=== PATIENT | female | born 1970 | race Caucasian/White ===

== ENCOUNTER → 2018-11-14 10:21 | Outpatient (CLI) | payer OTHER, SELFPAY ==
--- NOTE | 2018-11-14 10:24 | BI_ITS ---
MAMMOGRAPHY - BILATERAL SCREENING REASON FOR EXAM: Female, 48 years old. Routine annual screening examination. PERTINENT HISTORY: Mother with breast cancer. TECHNIQUE: Digital bilateral breast shantal (3D mammographic acquisition) in the CC and MLO projections. 2-D mediolateral oblique (MLO) and craniocaudad (CC) views of both breasts were obtained. CAD: Full Field Digital Mammography with Computer Added Detection was performed. COMPARISON: Comparison is made with prior examination dated September 06, 2016. FINDINGS: Breast Composition: The breasts are heterogeneously dense, which may obscure small masses. There are no dominant masses or suspicious calcifications. No other significant abnormalities are identified. There has been no significant change since the prior study. BI/SCREEN MAMM (CAD) W/SHANTAL BILAT IMPRESSION: Stable bilateral screening mammogram. Yearly follow-up mammogram recommended. (A) ASSESSMENT CATEGORY: BIRADS Category 1: Negative. A letter regarding these results will be sent to the patient by the facility within 30 days. Approximately 10% of breast cancers are not detected by mammography. A normal mammogram should not delay biopsy of a clinically suspicious abnormality. [id number] Electronically Signed: Jaime Coronado, at 12:27 EDT , Service support ,
== END ==
PROVIDERS: Family Provider Family Medicine; PCP Family Medicine; Referring Provider Family Medicine; Visit Provider Family Medicine
DX: Z12.31 Encounter for screening mammogram for malignant neoplasm of breast (principal)
CPT/HCPCS: 77063; 77067

== ENCOUNTER → 2018-11-17 09:59 | Outpatient (CLI) | payer OTHER, SELFPAY ==
[2017-03-08 12:45] VITALS: BMI 25.6
[2018-11-17 12:25] LABS: Absolute Lymphocyte Count 1.78 X10^3/uL (0.83-4.51); Basophil# 0.06 X10^3/uL; Eosinophil# 0.44 X10^3/uL; Eosinophils% 7.4 % (0-5); Hematocrit 41.8 % (37-47); Hemoglobin 13.8 g/dL (12.0-15.0); Lymphocyte # 1.78 X10^3/ul (4.0); Lymphocyte % 30.1 % (19-41); Mean Corpuscular Hgb 31.2 pg (27.0-32.0); Mean Corpuscular Volume 94.4 fL (81-99); Mean Platelet Vol. 9.8 fl (6.2-12.0); Monocyte# 0.67 X10^3/uL; Monocyte% 11.3 % (0-10); NRBC Flagged by Analyzer 0 % (0-5); Neutrophil # 2.95 X10^3/uL (2.7-7.7); Platelet Count 293 K/mm3 (150-450); RBC Distribution Width CV 12.9 % (11.6-14.6); RBC Distribution Width SD 44.8 fl (35.1-43.9); Red Blood Count 4.43 M/mm3 (4.2-5.4); White Blood Count 5.9 K/mm3 (4.4-11.0)
[2018-11-17 13:29] LABS: ALB/GLOB Ratio 0.9 RATIO (0.9-2.4); AST(SGOT) 18 U/L (15-37); Alanine Aminotransfer ALT/SGPT 19 U/L (13-56); Albumin, Serum 3.5 g/dL (3.2-5.0); Alkaline Phosphatase 73 U/L (45-117); Anion Gap 4 (5-15); BUN 11 mg/dL (7-18); BUN/Creat Ratio 14.5 RATIO (10-20); Calcium,Total 8.7 mg/dL (8.5-10.1); Chloride 108 mmol/L (98-107); Cholesterol 332 mg/dL (200); Creatinine, Serum 0.76 mg/dL (0.55-1.02); EST Glomerular Filtration Rate 86 mL/min (>60); Est Glom Filt Rate - Afr Amer 104 mL/min (>60); Globulin 3.7 g/dL (2.2-4.2); Glucose 91 mg/dL (74-106); High Density Lipoprotein 57 mg/dL; Potassium 4.2 mmol/L (3.5-5.1); Protein, Total 7.2 g/dL (6.4-8.2); Sodium Level 139 mmol/L (136-145); Triglycerides 280 mg/dL; Very Low Density Lipoprotein 56 mg/dL (5-40)
== END ==
PROVIDERS: Family Provider Family Medicine; PCP Family Medicine; Referring Provider Family Medicine; Visit Provider Family Medicine
DX: E78.5 Hyperlipidemia, unspecified (principal); I10 Essential (primary) hypertension
CPT/HCPCS: 36415; 80053; 80061; 85025

== ENCOUNTER → 2020-03-10 10:43 | Outpatient (CLI) | payer OTHER, SELFPAY ==
[2020-03-10 11:20] LABS: Absolute Lymphocyte Count 2.06 X10^3/uL (0.83-4.51); Absolute Neutrophil Count 4.9 X10^3/uL (2.0-7.7); Basophil# 0.06 X10^3/uL; Basophil% 0.7 % (0-1); Eosinophil# 0.36 X10^3/uL; Eosinophils% 4.4 % (0-5); Hematocrit 43.8 % (37-47); Hemoglobin 14.5 g/dL (12.0-15.0); Lymphocyte # 2.06 X10^3/ul (4.0); Lymphocyte % 25.4 % (19-41); Mean Corp Hgb Conc 33.1 g/dL (32-36); Mean Corpuscular Volume 93.6 fL (81-99); Mean Platelet Vol. 9.3 fl (6.2-12.0); Monocyte# 0.75 X10^3/uL; Monocyte% 9.2 % (0-10); NRBC Flagged by Analyzer 0 % (0-5); Neutrophil # 4.85 X10^3/uL (2.7-7.7); Neutrophil % 59.9 % (47-70); Platelet Count 423 K/mm3 (150-450); RBC Distribution Width CV 13.1 % (11.6-14.6); RBC Distribution Width SD 45.1 fl (35.1-43.9); Red Blood Count 4.68 M/mm3 (4.2-5.4); White Blood Count 8.1 K/mm3 (4.4-11.0)
[2020-03-10 11:55] LABS: AST(SGOT) 12 U/L (15-37); Alanine Aminotransfer ALT/SGPT 19 U/L (13-56); Albumin, Serum 4.1 g/dL (3.2-5.0); Alkaline Phosphatase 72 U/L (45-117); Anion Gap 4 (5-15); BUN 21 mg/dL (7-18); BUN/Creat Ratio 19.6 RATIO (10-20); Calcium,Total 9.5 mg/dL (8.5-10.1); Chloride 103 mmol/L (98-107); Cholesterol 303 mg/dL (200); Creatinine, Serum 1.07 mg/dL (0.55-1.02); EST Glomerular Filtration Rate 58 mL/min (>60); Est Glom Filt Rate - Afr Amer 70 mL/min (>60); Globulin 4.1 g/dL (2.2-4.2); Glucose 97 mg/dL (74-106); High Density Lipoprotein 59 mg/dL; Potassium 3.4 mmol/L (3.5-5.1); Protein, Total 8.2 g/dL (6.4-8.2); Sodium Level 138 mmol/L (136-145); Triglycerides 301 mg/dL; Very Low Density Lipoprotein 60 mg/dL (5-40)
== END ==
PROVIDERS: PCP Family Medicine; Visit Provider Family Medicine
DX: E78.5 Hyperlipidemia, unspecified (principal); I10 Essential (primary) hypertension
CPT/HCPCS: 36415; 80053; 80061; 85025

== ENCOUNTER → 2021-07-15 | Outpatient (CLI) | payer OTHER, SELFPAY ==
[2021-07-15 10:19] LABS: Absolute Lymphocyte Count 2.37 X10^3/uL (0.83-4.51); Absolute Neutrophil Count 4.5 X10^3/uL (2.0-7.7); Basophil# 0.06 X10^3/uL; Basophil% 0.7 % (0-1); Eosinophil# 0.38 X10^3/uL; Eosinophils% 4.7 % (0-5); Hematocrit 42.1 % (37-47); Hemoglobin 14.2 g/dL (12.0-15.0); Lymphocyte # 2.37 X10^3/ul (0.83-4.51); Lymphocyte % 29.2 % (19-41); Mean Corp Hgb Conc 33.7 g/dL (32-36); Mean Corpuscular Hgb 31.3 pg (27.0-32.0); Mean Corpuscular Volume 92.7 fL (81-99); Mean Platelet Vol. 9.6 fl (6.2-12.0); Monocyte# 0.83 X10^3/uL; Monocyte% 10.2 % (0-10); NRBC Flagged by Analyzer 0 % (0-5); Neutrophil # 4.45 X10^3/uL (2.7-7.7); Platelet Count 357 K/mm3 (150-450); RBC Distribution Width CV 13.5 % (11.6-14.6); RBC Distribution Width SD 45.8 fl (35.1-43.9); Red Blood Count 4.54 M/mm3 (4.2-5.4); White Blood Count 8.1 K/mm3 (4.4-11.0)
[2021-07-15 11:01] LABS: ALB/GLOB Ratio 1.1 RATIO (0.9-2.4); AST(SGOT) 22 U/L (15-37); Alanine Aminotransfer ALT/SGPT 23 U/L (13-56); Albumin, Serum 3.9 g/dL (3.2-5.0); Alkaline Phosphatase 61 U/L (45-117); Anion Gap 6 (5-15); BUN 14 mg/dL (7-18); BUN/Creat Ratio 17.1 RATIO (10-20); Calcium,Total 8.8 mg/dL (8.5-10.1); Chloride 103 mmol/L (98-107); Cholesterol 268 mg/dL (200); Creatinine, Serum 0.82 mg/dL (0.55-1.02); EST Glomerular Filtration Rate 78 mL/min (>60); Est Glom Filt Rate - Afr Amer 94 mL/min (>60); Globulin 3.6 g/dL (2.2-4.2); Glucose 96 mg/dL (74-106); High Density Lipoprotein 66 mg/dL; Potassium 3.2 mmol/L (3.5-5.1); Protein, Total 7.5 g/dL (6.4-8.2); Sodium Level 140 mmol/L (136-145); Triglycerides 268 mg/dL; Very Low Density Lipoprotein 54 mg/dL (5-40)
== END | disposition home or self-care (01) ==
LOC: LAB 09:36
PROVIDERS: PCP Family Medicine; Visit Provider Family Medicine
DX: Z00.00 Encounter for general adult medical examination without abnormal findings (principal); I10 Essential (primary) hypertension; E78.5 Hyperlipidemia, unspecified
CPT/HCPCS: 36415; 80053; 80061; 85025

== ENCOUNTER → 2021-08-08 | Outpatient (CLI) | payer OTHER, SELFPAY ==
--- NOTE | 2021-08-08 16:28 | BI_ITS ---
MAMMOGRAPHY - BILATERAL SCREENING REASON FOR EXAM: Female, 51 years old. Routine annual screening examination. PERTINENT HISTORY: Mother with breast cancer. TECHNIQUE: Digital bilateral breast shantal (3D mammographic acquisition) in the CC and MLO projections. 2-D mediolateral oblique (MLO) and craniocaudad (CC) views of both breasts were obtained. CAD: Full Field Digital Mammography with Computer Added Detection was performed. COMPARISON: Comparison is made with prior study dated 11/14/2018. FINDINGS: Breast Composition: The breasts are heterogeneously dense, which may obscure small masses. Asymmetrical breast tissue is seen in the upper slightly lateral aspect of the right breast. The patient will be recalled for additional views of the right breast and possible ultrasound. No other significant abnormalities are identified. BI/SCRN MAMM (CAD)W/SHANTAL BILAT IMPRESSION: Asymmetrical tissue in the upper-outer quadrant of the right breast as described. The patient will be recalled for additional views of the right breast including 90 degree lateral and compression spot views and possible ultrasound. Recall Side: Right Breast ASSESSMENT CATEGORY: BIRADS Category 0: Incomplete. Need additional imaging evaluation. A letter regarding these results will be sent to the patient by the facility within 30 days. Approximately 10% of breast cancers are not detected by mammography. A normal mammogram should not delay biopsy of a clinically suspicious abnormality. [id number] Electronically Signed: Jaime Coronado MD at 8:50 EDT ,
== END | disposition home or self-care (01) ==
LOC: OPBI 08-09 07:00
PROVIDERS: PCP Family Medicine; Visit Provider Family Medicine
DX: Z12.31 Encounter for screening mammogram for malignant neoplasm of breast (principal); Z80.3 Family history of malignant neoplasm of breast
CPT/HCPCS: 77063; 77067

== ENCOUNTER → 2021-08-16 | Outpatient (CLI) | payer OTHER, SELFPAY ==
--- NOTE | 2021-08-16 08:53 | US_ITS ---
STUDY: ULTRASOUND BREAST - RIGHT REASON FOR EXAM: Female, 51 years old. Abnormal screening mammogram. TECHNIQUE: Axial and longitudinal images of the RIGHT breast were performed with a high resolution ultrasound transducer. # OF IMAGES: 28 COMPARISON: Comparison is made with prior mammogram done earlier in the day as well as prior mammogram dated 08/08/2021. FINDINGS: RIGHT Breast: The upper outer quadrant of the right breast was examined by ultrasound. Heterogeneously dense fibroglandular tissue. No solid or cystic masses seen. US/Breast Limited Unilateral IMPRESSION: No sonographic abnormality is seen. ASSESSMENT CATEGORY: BIRADS Category 1: Negative. A letter regarding these results will be sent to the patient by the facility within 30 days. Electronically Signed: Jaime Coronado MD at 11:17 EDT ,
--- NOTE | 2021-08-16 08:53 | BI_ITS ---
MAMMOGRAPHY - UNILATERAL DIAGNOSTIC: RIGHT BREAST REASON FOR EXAM: Female, 51 years old. Abnormal screening mammogram. PERTINENT HISTORY: Mother with breast cancer. TECHNIQUE: Compression spot views of the right breast in the mediolateral oblique and craniocaudad projections were obtained. A 90 degree lateral view was obtained as well. CAD: Full Field Digital Mammography with Computer Added Detection was performed. COMPARISON: Comparison is made with prior study of 08/08/2021. FINDINGS: Breast Composition: The breasts are heterogeneously dense, which may obscure small masses. The area of the asymmetrical density is not as well demonstrated at this time. Correlation with ultrasound is recommended. No other significant abnormalities are identified. BI/DIAG MAMM W/CAD, UNILAT IMPRESSION: Negative unilateral diagnostic mammogram. Correlation with a targeted ultrasound is recommended. ASSESSMENT CATEGORY: BIRADS Category 0: Incomplete. Need additional imaging evaluation. A letter regarding these results will be sent to the patient by the facility within 30 days. Approximately 10% of breast cancers are not detected by mammography. A normal mammogram should not delay biopsy of a clinically suspicious abnormality. Electronically Signed: Jaime Coronado MD at 9:33 EDT ,
== END | disposition home or self-care (01) ==
LOC: OPBI 08:51
PROVIDERS: PCP Family Medicine; Visit Provider Family Medicine
DX: R92.8 Other abnormal and inconclusive findings on diagnostic imaging of breast (principal); Z80.3 Family history of malignant neoplasm of breast
CPT/HCPCS: 76642; 77065

== ENCOUNTER → 2022-11-17 | Outpatient (CLI) | payer OTHER, SELFPAY ==
[2022-11-17 10:01] LABS: Absolute Lymphocyte Count 2.02 X10^3/uL (0.83-4.51); Absolute Neutrophil Count 3.6 X10^3/uL (2.0-7.7); Basophil# 0.05 X10^3/uL; Basophil% 0.7 % (0-1); Eosinophil# 0.31 X10^3/uL; Eosinophils% 4.6 % (0-5); Hematocrit 42.9 % (37-47); Hemoglobin 14.4 g/dL (12.0-15.0); Lymphocyte # 2.02 X10^3/ul (0.83-4.51); Mean Corp Hgb Conc 33.6 g/dL (32-36); Mean Corpuscular Hgb 30.8 pg (27.0-32.0); Mean Corpuscular Volume 91.7 fL (81-99); Mean Platelet Vol. 9.5 fl (6.2-12.0); Monocyte% 10.4 % (0-10); NRBC Flagged by Analyzer 0 % (0-5); Neutrophil # 3.64 X10^3/uL (2.7-7.7); Neutrophil % 54.2 % (47-70); Platelet Count 352 K/mm3 (150-450); RBC Distribution Width SD 43.6 fl (35.1-43.9); Red Blood Count 4.68 M/mm3 (4.2-5.4); White Blood Count 6.7 K/mm3 (4.4-11.0)
[2022-11-17 10:19] LABS: ALB/GLOB Ratio 1.1 RATIO (0.9-2.4); AST(SGOT) 22 U/L (15-37); Alanine Aminotransfer ALT/SGPT 25 U/L (13-56); Albumin, Serum 3.9 g/dL (3.2-5.0); Alkaline Phosphatase 76 U/L (45-117); Anion Gap 1 (5-15); BUN 25 mg/dL (7-18); Calcium,Total 9.5 mg/dL (8.5-10.1); Chloride 103 mmol/L (98-107); Cholesterol 350 mg/dL (200); EST Glomerular Filtration Rate 62 mL/min (>60); Est Glom Filt Rate - Afr Amer 75 mL/min (>60); Globulin 3.7 g/dL (2.2-4.2); Glucose 100 mg/dL (74-106); High Density Lipoprotein 71 mg/dL; Potassium 3.8 mmol/L (3.5-5.1); Protein, Total 7.6 g/dL (6.4-8.2); Sodium Level 137 mmol/L (136-145); Triglycerides 198 mg/dL; Very Low Density Lipoprotein 40 mg/dL (5-40)
== END | disposition home or self-care (01) ==
LOC: LAB 09:35
PROVIDERS: PCP Family Medicine; Referring Provider Family Medicine; Visit Provider Family Medicine
DX: Z00.00 Encounter for general adult medical examination without abnormal findings (principal); I10 Essential (primary) hypertension; E78.5 Hyperlipidemia, unspecified
CPT/HCPCS: 36415; 80053; 80061; 85025

== ENCOUNTER → 2023-10-01 | Outpatient (CLI) | payer OTHER, SELFPAY ==
--- NOTE | 2023-10-01 16:14 | BI_ITS ---
MAMMOGRAPHY - BILATERAL SCREENING REASON FOR EXAM: Female, 53 years old. Routine annual screening examination. PERTINENT HISTORY: Mother with breast cancer. TECHNIQUE: Digital bilateral breast shantal (3D mammographic acquisition) in the CC and MLO projections. 2-D mediolateral oblique (MLO) and craniocaudad (CC) views of both breasts were obtained. CAD: Full Field Digital Mammography with Computer Added Detection was performed. COMPARISON: Comparison is made with prior study dated August 08, 2021 and August 16, 2021. FINDINGS: Breast Composition: The breasts are heterogeneously dense, which may obscure small masses. There are no dominant masses or suspicious calcifications. Stable asymmetry of breast tissue were more breast tissue is seen in the upper slightly outer aspect of the right breast as compared to the left side. No other significant abnormalities are identified. There has been no significant change since the prior study. BI/SCRN MAMM (CAD)W/SHANTAL BILAT IMPRESSION: Stable bilateral screening mammogram. Yearly follow-up mammogram recommended. (A) ASSESSMENT CATEGORY: BIRADS Category 2: Benign. A letter regarding these results will be sent to the patient by the facility within 30 days. Approximately 10% of breast cancers are not detected by mammography. A normal mammogram should not delay biopsy of a clinically suspicious abnormality. [id number] Electronically Signed: Jaime Coronado MD at 8:15 EDT ,
== END | disposition home or self-care (01) ==
LOC: OPBI 16:12
PROVIDERS: PCP Family Medicine; Referring Provider Family Medicine; Visit Provider Family Medicine
DX: Z12.31 Encounter for screening mammogram for malignant neoplasm of breast (principal); Z80.3 Family history of malignant neoplasm of breast
CPT/HCPCS: 77063; 77067

== ENCOUNTER → 2024-07-11 | Outpatient (CLI) | payer OTHER, SELFPAY ==
[2024-07-11 11:26] LABS: Absolute Lymphocyte Count 2.24 X10^3/uL (0.83-4.51); Absolute Neutrophil Count 3.4 X10^3/uL (2.0-7.7); Basophil# 0.06 X10^3/uL; Basophil% 0.9 % (0-1); Eosinophil# 0.18 X10^3/uL; Eosinophils% 2.7 % (0-5); Hematocrit 40.6 % (37-47); Lymphocyte # 2.24 X10^3/ul (0.83-4.51); Lymphocyte % 33.8 % (19-41); Mean Corp Hgb Conc 34.5 g/dL (32-36); Mean Corpuscular Hgb 30.8 pg (27.0-32.0); Mean Corpuscular Volume 89.2 fL (81-99); Mean Platelet Vol. 9.7 fl (6.2-12.0); Monocyte# 0.71 X10^3/uL; Monocyte% 10.7 % (0-10); NRBC Flagged by Analyzer 0 % (0-5); Neutrophil # 3.42 X10^3/uL (2.7-7.7); Neutrophil % 51.7 % (47-70); Platelet Count 339 K/mm3 (150-450); RBC Distribution Width SD 42.4 fl (35.1-43.9); Red Blood Count 4.55 M/mm3 (4.2-5.4); White Blood Count 6.6 K/mm3 (4.4-11.0)
[2024-07-11 12:21] LABS: ALB/GLOB Ratio 1.5 RATIO (0.9-2.4); AST(SGOT) 29 U/L (<=31); Alanine Aminotransfer ALT/SGPT 22 U/L (<=34); Albumin, Serum 4.5 g/dL (3.5-5.0); Alkaline Phosphatase 84 U/L (35-104); Anion Gap 12 (5-15); BUN 19 mg/dL (4-19); BUN/Creat Ratio 19.8 RATIO (10-20); Calcium,Total 9.9 mg/dL (7.6-11.0); Carbon Dioxide 26.8 mmol/L (21.0-32.0); Chloride 102 mmol/L (98-108); Creatinine, Serum 0.98 mg/dL (0.70-1.20); EST Glomerular Filtration Rate 69 (>60); Glucose 101 mg/dL (70-99); Potassium 3.8 mmol/L (3.3-5.1); Protein, Total 7.5 g/dL (5.9-8.4); Sodium Level 141 mmol/L (133-145); Total Bilirubin 0.43 mg/dL (0.00-1.30)
[2024-07-11 12:40] LABS: Cholesterol 274 mg/dL (<=200); High Density Lipoprotein 65 mg/dL; Low Density Lipoprotein Calc. 176 mg/dL; Triglycerides 168 mg/dL; Very Low Density Lipoprotein 34 mg/dL (5-40); cholesterol:hdl ratio screen 4.24
== END | disposition home or self-care (01) ==
LOC: LAB 10:45
PROVIDERS: PCP Family Medicine; Referring Provider Family Medicine; Visit Provider Family Medicine
DX: Z00.00 Encounter for general adult medical examination without abnormal findings (principal); I10 Essential (primary) hypertension; E78.5 Hyperlipidemia, unspecified
CPT/HCPCS: 36415; 80053; 80061; 85025

== ENCOUNTER → 2024-10-21 | Outpatient (CLI) | payer OTHER, SELFPAY ==
--- NOTE | 2024-10-21 15:31 | BI_ITS ---
EXAM: SCRN MAMM (CAD)W/SHANTAL BILAT DATE: 10/21/2024 CLINICAL HISTORY: F, Age 54 y/o , SCREENING TECHNIQUE: SCRN MAMM (CAD)W/SHANTAL BILAT COMPARISON: Prior exam(s) were compared FINDINGS: TISSUE DENSITY: The breasts are heterogeneously dense, which may obscure small masses. Bilateral Breast Mammographic Findings: No suspicious masses, calcifications or other abnormalities are identified. BI/SCRN MAMM (CAD)W/SHANTAL BILAT IMPRESSION: No mammographic evidence of malignancy in either breast. OVERALL FINAL ASSESSMENT BI-RADS 1: NEGATIVE. RECOMMENDATION: Routine annual follow-up in 1 Year A letter with findings and recommendations will be mailed to the patient. Reading Location: [id number]
== END | disposition home or self-care (01) ==
LOC: OPBI 15:30
PROVIDERS: PCP Family Medicine; Referring Provider Family Medicine; Visit Provider Family Medicine
DX: Z12.31 Encounter for screening mammogram for malignant neoplasm of breast (principal)
CPT/HCPCS: 77063; 77067

== ENCOUNTER → 2024-12-28 | Outpatient (CLI) | payer OTHER, SELFPAY ==
--- OUTSIDE RECORDS SUMMARY | 2024-12-28 17:51 | XMS RPT_ITS | CCD ---
Author Organization [facility] Care Team Providers Care Treatment Coordinator Name Role Phone Samina ALONSO, Dr. Mclean Primary Care Provider [phone] Samina ALONSO, Dr. Mclean Attending Provider [phone] Dr. Caridad Haas MD Referring Provider [phone] Caridad Haas Primary Care Unavailable Caridad Haas Referring Unavailable Caridad Haas Attending Unavailable Caridad Haas Referring Unavailable Caridad Haas Attending Unavailable Caridad Haas Primary Care Unavailable Medications Current Medications Medication Drug Class(es) Dates Sig (Normalized) Sig (Original) hydroCHLOROthiazide 25 mg / triamterene 37.5 mg oral tablet (1 source) Potassium-spari ng Diuretic, Thiazide Diuretic Start: 10-22-2024 Triamterene-Hydr ochlorothiazid 37.5-25 mg tablet Active 1 {tbl} PO daily October 22, 2024 12:00am simvastatin 20 mg oral tablet (7 sources) HMG-CoA Reductase Inhibitor Start: 10-22-2024 take 1 tablet by mouth once daily Simvastatin 20 mg tablet Active 20 mg PO daily October 22, 2024 12:00am Start: 03-08-2017 End: 10-22-2024 take 1 tablet by mouth once daily in the evening Simvastatin 5 mg tablet Discontinued 5 mg PO EVERY EVENING March 08, 2017 1:00am October 22, 2024 11:35am wheat dextrin 3000 mg powder for oral solution (1 source) Start: 10-22-2024 take 4 [oz_av] by mouth once daily Wheat Dextrin (Best Fiber) 3 gram/3.5 gram powder Active 1 NMA PO daily October 22, 2024 12:00am mix into at least 4 oz water or juice before administering Completed/Discontinued Medications Medication Drug Class(es) Dates Sig (Normalized) Sig (Original) triamterene 50 mg oral capsule (6 sources) Potassium-sparin g Diuretic Start: 03-08-2017 End: 10-22-2024 take 1 capsule by mouth once daily Triamterene 50 mg capsule Discontinued 50 mg PO daily March 08, 2017 1:00am October 22, 2024 11:34am Problems Problem Classification Problem Date Documented Da te Episodic/Chronic Other screening for suspected conditions (not mental disorders or infectious disease) (1 source) Encounter for screening mammogram for malignant neoplasm of breast; Translations: [Encounter for screening mammogram for malignant neoplasm of breast] Onset: 10-29-2024 Episodic Spondylosis; intervertebral disc disorders; other back problems (6 sources) Cervical radiculopathy; Translations: [Radiculopathy, cervical region] 03-08-2017 Episodic Results Test Name Value Interpretation Reference Range Facility Breast imaging reportOrdered By: Gemini Lerner on 10-21-2024 Study report [facility] [address], [place] [id number] SCRN MAMM (CAD)W/SHANTAL BILAT MR#: [id number] Acct: [id number] Name: LEIA LEW Rep #: [id number] : 1970 F 54 From: Clifton Steel MD PCP: Dr. Caridad Haas MD Status: [facility] Study:SCRN MAMM (CAD)W/SHANTAL BILAT Date of Exa m: 10/21/24 Exam# [id number] Ordering Dr: Jerri Haas MD EXAM: SCRN MAMM (CAD)W/SHANTAL BILAT DATE: 10/21/2024 CLINICAL HISTORY: F, Age 54 y/o , SCREENING TECHNIQUE: SCRN MAMM (CAD)W/SHANTAL BILAT COMPARISON: Prior exam(s) were compared FINDINGS: TISSUE DENSITY: The breasts are heterogeneously dense, which may obscure small masses. Bilateral Breast Mammographic Findings: No suspicious masses, calcifications or other abnormalities are identified. BI/SCRN MAMM (CAD)W/SHANTAL BILAT IMPRESSION: No mammographic evidence of malignancy in either breast. OVERALL FINAL ASSESSMENT BI-RADS 1: NEGATIVE. RECOMMENDATION: Routine annual follow-up in 1 Year A letter with findings and recommendations will be mailed to the patient. Reading Location: [facility] CC: Dr. Caridad Haas MD ~ Chemical Checker: Signed [facility] SCRN MAMM (CAD)W/SHANTAL BILATo n 10-21-2024 SCRN MAMM (CAD)W/SHANTAL BILAT [facility] Services [address] [place] [address] SCRN MAMM (CAD)W/SHANTAL BILAT MR#: [id number] Acct: [id number] Name: LEIA LEW Rep #: [id number] : 1970 F 54 From: Gemini Zavala i, MD PCP: Dr. Caridad Haas MD Status: [facility] Study: SCRN MAMM (CAD)W/SHANTAL BILAT Date of Exam: 10/09 06/02 Exam# [id number] Ordering Dr: Caridad Haas MD EXAM: SCRN MAMM (CAD)W/SHANTAL BILAT DATE: 10/21/2024 CLINICAL HISTORY: F, Age 54 y/o , SCREENING TECHNIQUE: SCRN MAMM (CAD)W/SHANTAL BILAT COMPARISON: Prior exam(s) were compared FINDINGS: TISSUE DENSITY: The breasts are heterogeneously dense, which may obscure small masses. Bilateral Breast Mammographic Findings: No suspicious masses, calcifications or other abnormalities are identified. BI/SCRN MAMM (CAD)W/SHANTAL BILAT IMPRESSION: No mammographic evidence of malignancy in either breast. OVERALL FINAL ASSESSMENT BI-RADS 1: NEGATIVE. RECOMMENDATION: Routine annual follow-up in 1 Year A letter with findings and recommendations will be mailed to the patient. Reading Location: [facility] CC: Dr. Caridad Haas MD Chemical Checker: Signed Normal [facility] Absolute lymphocyte countOrd ered By: Caridad Haas on 07-11-2024 Lymphocytes Auto (Unsp spec) [#/Vol] 2.24 10*3/uL 0.83-4.51 [facility] Absolute neutrophil countOrd ered By: Caridad Haas on 07-11-2024 Neutrophils (Bld) [#/Vol] 3.4 10*3/uL 2.0-7.7 [facility] Anion gap in Serum or Plasma Ordered By: Caridad Haas on 07-11-2024 Anion gap [Moles/Vol] 12 mmol/L 5- [facility] Automated lymphocyte count a s percentage of total leukocytesOrdered By: Caridad Haas on 07-11-2024 Lymphocytes/100 WBC Auto (Unsp spec) 33.8 % - [facility] BUN/creatinine ratioOrdered By: Caridad Haas on 07-11-2024 Urea nitrogen/Creatinine [Mass ratio] 19.8 mg/mg 10- [facility] Basophil percentageOrdered B y: Caridad Haas on 07-11-2024 Basophils/100 WBC (Bld) 0.9 % 0-1 [facility] Bilirubin, totalOrdered By: Caridad Haas on 07-11-2024 Bilirubin [Mass/Vol] 0.43 mg/dL 0.00-1.30 [facility] CBC W/Diff, Automatedon Absolute Lymph 2.24 X10 3/uL Normal 0.83-4.51 [facility] Comment on above: Performed By: #### L 500.4050, L500.4100, L100.0100 #### [facility] [address] [place], [address] Absolute Neut 3.4 X10 3/uL Normal 2.0-7.7 [facility] Comment on above: Performed By: #### L 500.4050, L500.4100, L100.0100 #### [facility] [address] [place], [address] Basophils/100 WBC (Bld) 0.9 % Normal 0-1 [facility] Comment on above: Performed By: #### L 500.4050, L500.4100, L100.0100 #### [facility] [address] [place], [address] Eosinophils/100 WBC (Bld) 2.7 % Normal 0-5 [facility] Comment on above: Performed By: #### L 500.4050, L500.4100, L100.0100 #### [facility] [address] [place], [address] Erythrocyte distribution width (RBC) [Ratio] 13.0 % Normal 11.6-14.6 [facility] Comment on above: Performed By: #### L 500.4050, L500.4100, L100.0100 #### [facility] [address] [place], [address] Hematocrit (Bld) [Volume fraction] 40.6 % Normal 37-47 [facility] Comment on above: Performed By: #### L 500.4050, L500.4100, L100.0100 #### [facility] [address] [place], [address] Hemoglobin (Bld) [Mass/Vol] 14.0 g/dL Normal 12.0-15.0 [facility] Comment on above: Performed By: #### L 500.4050, L500.4100, L100.0100 #### [facility] [address] [place], [address] IG% 0.200 Normal 0.0-0.9 [facility] Comment on above: Result Comment: IG% - Immature Granulocytes (promyelocytes, myelocytes and metamyelocytes) > 1% indicates that a LEFT SHIFT is Present. Performed By: #### L 500.4050, L500.4100, L100.0100 #### [facility] [address] [place], [address] Lymphocytes/100 WBC (Bld) 33.8 % Normal 19-41 [facility] Comment on above: Performed By: #### L 500.4050, L500.4100, L100.0100 #### [facility] [address] [place], [address] MCH (RBC) [Entitic mass] 30.8 pg Normal 27.0-32.0 [facility] Comment on above: Performed By: #### L 500.4050, L500.4100, L100.0100 #### [facility] [address] [place], [address] MCHC (RBC) [Mass/Vol] 34.5 g/dL Normal 32-36 [facility] Comment on above: Performed By: #### L 500.4050, L500.4100, L100.0100 #### [facility] [address] [place], [address] MCV (RBC) [Entitic vol] 89.2 fL Normal 81-99 [facility] Comment on above: Performed By: #### L 500.4050, L500.4100, L100.0100 #### [facility] [address] [place], [address] Monocytes/100 WBC (Bld) 10.7 % High 0-10 [facility] Comment on above: Performed By: #### L 500.4050, L500.4100, L100.0100 #### [facility] [address] [place], [address] Neutrophils/100 WBC (Bld) 51.7 % Normal 47-70 [facility] Comment on above: Performed By: #### L 500.4050, L500.4100, L100.0100 #### [facility] [address] [place], [address] Nucleated RBC (Bld) [#/Vol] 0 10*3/uL Normal 0-5 [facility] Comment on above: Performed By: #### L 500.4050, L500.4100, L100.0100 #### [facility] [address] [place], [address] Platelet mean volume (Bld) [Entitic vol] 9.7 fL Normal 6.2-12.0 [facility] Comment on above: Performed By: #### L 500.4050, L500.4100, L100.0100 #### [facility] [address] [place], [address] Platelets (Bld) [#/Vol] 339 10*3/uL Normal 150-450 [facility] Comment on above: Performed By: #### L 500.4050, L500.4100, L100.0100 #### [facility] [address] [place], [address] RBC (Bld) [#/Vol] 4.55 10*6/uL Normal 4.2-5.4 [facility] Comment on above: Performed By: #### L 500.4050, L500.4100, L100.0100 #### [facility] [address] [place], [address] RDW SD 42.4 fl Normal 35.1-43.9 [facility] Comment on above: Performed By: #### L 500.4050, L500.4100, L100.0100 #### [facility] [address] [place], [address] WBC (Bld) [#/Vol] 6.6 10*3/uL Normal 4.4-11.0 [facility] Comment on above: Performed By: #### L 500.4050, L500.4100, L100.0100 #### [facility] [address] [place], [address] Calculated very low density lipoprotein (VLDL) cholesterol measurementOrdered By: Caridad Haas on 07-11-2024 Calculated very low density lipoprotein (VLDL) cholesterol measurement 34 mg/dL 5-40 [facility] Carbon dioxide, total [Moles /volume] in Central venous bloodOrdered By: Caridad Hasa on 07-11-2024 CO2 [Moles/Vol] 26.8 mmol/L 21.0-32.0 [facility] Chloride assayOrdered By: Rashad Haas on 07-11-2024 Chloride [Moles/Vol] 102 mmol/L 98-108 [facility] Comprehensive Metabolic Prof ilon 07-11-2024 Albumin [Mass/Vol] 4.5 g/dL Normal 3.5-5.0 [facility] Comment on above: Performed By: #### L 500.4050, L500.4100, L100.0100 #### [facility] [address] [place], [address] Albumin/Globulin [Mass ratio] 1.5 {ratio} Normal 0.9-2.4 [facility] Comment on above: Performed By: #### L 500.4050, L500.4100, L100.0100 #### [facility] [address] [place], [address] ALK PHOS 84 U/L Normal 35-104 [facility] Comment on above: Performed By: #### L 500.4050, L500.4100, L100.0100 #### [facility] [address] [place], [address] ALT [Catalytic activity/Vol] 22 U/L Normal <=34 [facility] Comment on above: Performed By: #### L 500.4050, L500.4100, L100.0100 #### [facility] [address] [place], [address] AST [Catalytic activity/Vol] 29 U/L Normal <=31 [facility] Comment on above: Performed By: #### L 500.4050, L500.4100, L100.0100 #### [facility] [address] [place], [address] Bilirubin [Mass/Vol] 0.43 mg/dL Normal 0.00-1.30 [facility] Comment on above: Performed By: #### L 500.4050, L500.4100, L100.0100 #### [facility] [address] [place], [address] BUN/CRE 19.8 RATIO Normal 10-20 [facility] Comment on above: Performed By: #### L 500.4050, L500.4100, L100.0100 #### [facility] [address] [place], [address] Calcium [Mass/Vol] 9.9 mg/dL Normal 7.6-11.0 [facility] Comment on above: Performed By: #### L 500.4050, L500.4100, L100.0100 #### [facility] [address] [place], [address] Chloride [Moles/Vol] 102 mmol/L Normal 98-108 [facility] Comment on above: Performed By: #### L 500.4050, L500.4100, L100.0100 #### [facility] [address] [place], [address] CO2 [Moles/Vol] 26.8 mmol/L Normal 21.0-32.0 [facility] Comment on above: Performed By: #### L 500.4050, L500.4100, L100.0100 #### [facility] [address] [place], [address] Creatinine [Mass/Vol] 0.98 mg/dL Normal 0.70-1.20 [facility] Comment on above: Performed By: #### L 500.4050, L500.4100, L100.0100 #### [facility] [place] [facility] [address] [place], [address] GAP 12 Normal 5-15 [facility] Comment on above: Performed By: #### L 500.4050, L500.4100, L100.0100 #### [facility] [address] [place], [address] GFR/1.73 sq M.predicted among non-blacks MDRD (S/P/Bld) [Vol rate/Area] 69 mL/min/{1.73_m2} Normal >60 [facility] Comment on above: Result Comment: mL/m in/1.73m2 CKD-EPI Creatinine Equation (2020) Performed By: #### L 500.4050, L500.4100, L100.0100 #### [facility] [address] [place], [address] Globulin (S) [Mass/Vol] 3.0 g/dL Normal 2.2-4.2 [facility] Comment on above: Performed By: #### L 500.4050, L500.4100, L100.0100 #### [facility] [address] [place], [address] Glucose [Mass/Vol] 101 mg/dL High 70-99 [facility] Comment on above: Performed By: #### L 500.4050, L500.4100, L100.0100 #### [facility] [address] [place], [address] Potassium [Moles/Vol] 3.8 mmol/L Normal 3.3-5.1 [facility] Comment on above: Performed By: #### L 500.4050, L500.4100, L100.0100 #### [facility] [address] [place], [address] Sodium [Moles/Vol] 141 mmol/L Normal 133-145 [facility] Comment on above: Performed By: #### L 500.4050, L500.4100, L100.0100 #### [facility] [address] [place], [address] T PROT 7.5 g/dL Normal 5.9-8.4 [facility] Comment on above: Performed By: #### L 500.4050, L500.4100, L100.0100 #### [facility] [address] [place], [address] Urea nitrogen [Mass/Vol] 19 mg/dL Normal 4-19 [facility] Comment on above: Performed By: #### L 500.4050, L500.4100, L100.0100 #### [facility] [address] [place], [address] Eosinophil percentageOrdered By: Caridad Haas on 07-11-2024 Eosinophils/100 WBC (Bld) 2.7 % 0-5 [facility] Erythrocyte distribution wid th ratioOrdered By: Caridad Samina on 07-11-2024 Erythrocyte distribution width (RBC) [Ratio] 13.0 % 11.6-14.6 [facility] Erythrocyte distribution wid th standard deviationOrdered By: Caridadjerri Haas on 07-11-2024 Erythrocyte distribution width (RBC) [Ratio] 42.4 fl 35.1-43.9 [facility] Glomerular filtration rate ( GFR) estimation/1.73 sq m using serum, plasma, or whole bOrdered By: Caridad Haas on 07-11-2024 GFR/1.73 sq M.predicted among non-blacks MDRD (S/P/Bld) [Vol rate/Area] 69 mL/min/{1.73_m2} >60 [facility] Comment on above: mL/min/1.73m2 CKD-EP I Creatinine Equation (2020) Hematocrit Auto (Bld) [Volum e fraction]Ordered By: Caridad Haas on 07-11-2024 Hematocrit (Bld) [Volume fraction] 40.6 % 37-47 [facility] Hemoglobin measurementOrdere d By: Caridad Haas on 07-11-2024 Hemoglobin (Bld) [Mass/Vol] 14.0 g/dL 12.0-15.0 [facility] Immature granulocytes/100 WB C Auto (Bld)Ordered By: Caridad Haas on 07-11-2024 Immature granulocytes/100 WBC (Bld) 0.200 % 0.0-0.9 [facility] Comment on above: IG% - Immature Granu locytes (promyelocytes, myelocytes and metamyelocytes) > 1% indicates that a LEFT SHIFT is Present. LDL calc ser/plasOrdered By: Caridad Haas on 07-11-2024 Cholesterol in LDL [Mass/Vol] 176 mg/dL [facility] Comment on above: Blrcjjbdnz=180-028 m g/dL & Higher Bdbs=360 mg/dL or greater Laboratory - Chemistry and C hemistry - challengeOrdered By: Caridad Haas on 07-11-2024 AST [Catalytic activity/Vol] 29 U/L <32 [facility] Lipid Profileon 07-11-2024 CHOL:HDL 4.24 Normal [facility] Comment on above: Performed By: #### L 500.4050, L500.4100, L100.0100 #### [facility] [address] [place], [address] Cholesterol [Mass/Vol] 274 mg/dL High <=200 [facility] Comment on above: Result Comment: Chol esterol level, Desirable <200 mg/dL Borderline high cholesterol 200-239 mg/dL High cholesterol >=240 mg/dL Recommendations of the NCEP Adult Treatment Panel for the following risk-cutoff thresholds for the [place] population. Performed By: #### L 500.4050, L500.4100, L100.0100 #### [facility] [address] [place], [address] Cholesterol in HDL [Mass/Vol] 65 mg/dL Normal [facility] Comment on above: Result Comment: Sally onal Cholesterol Education Program (NCEP) guidelines: <40 mg/dL: Low HDL-cholesterol (major risk factor for CHD) >= 60 mg/dL: High HDL-cholesterol (negative risk factor for CHD) HDL-cholesterol is affected by a number of factors, e.g. smoking, exercise, hormones, sex and age. Performed By: #### L 500.4050, L500.4100, L100.0100 #### [facility] [address] [place], [address] Cholesterol in LDL [Mass/Vol] 176 mg/dL Normal [facility] Comment on above: Result Comment: Bord hxqqll=512-797 mg/dL Higher Hnqu=919 mg/dL or greater Performed By: #### L 500.4050, L500.4100, L100.0100 #### [facility] [address] [place], [address] Cholesterol in VLDL [Mass/Vol] 34 mg/dL Normal 5-40 [facility] Comment on above: Performed By: #### L 500.4050, L500.4100, L100.0100 #### [facility] [address] [place], [address] Triglyceride [Mass/Vol] 168 mg/dL Normal [facility] Comment on above: Result Comment: The drugs N-Acetylcysteine and Metamizole may falsely depress this assay. Normal range: <150 mg/dL Borderline High: 150-199 mg/dL High: 200-499 mg/dL Very High: >500 mg/dL Performed By: #### L 500.4050, L500.4100, L100.0100 #### [facility] [address] [place], [address] MCV (mean corpuscular volume ) determinationOrdered By: Caridad Haas on 07-11-2024 MCV (RBC) [Entitic vol] 89.2 fL 81-99 [facility] Mean corpuscular hemoglobin (MCH) determinationOrdered By: Caridad Haas on 07-11-2024 MCH (RBC) [Entitic mass] 30.8 pg 27.0-32.0 [facility] Mean corpuscular hemoglobin concentration (MCHC) determinationOrdered By: Caridad Haas on 07-11-2024 MCHC (RBC) [Mass/Vol] 34.5 g/dL 32-36 [facility] Mean platelet volume determi nationOrdered By: Caridad Haas on 07-11-2024 Platelet mean volume (Bld) [Entitic vol] 9.7 fL 6.2-12.0 [facility] Monocyte percentageOrdered B y: Caridad Haas on 07-11-2024 Monocytes/100 WBC (Bld) 10.7 % High 0-10 [facility] Neutrophil percentageOrdered By: Caridad Haas on 07-11-2024 Neutrophils/100 WBC (Bld) 51.7 % 47-70 [facility] Nucleated red blood cell per centageOrdered By: Caridad Haas on 07-11-2024 Nucleated RBC/100 WBC (Bld) [Ratio] 0 % 0-5 [facility] Platelet countOrdered By: Rashad Haas on 07-11-2024 Platelets (Bld) [#/Vol] 339 10*3/uL 150-450 [facility] Potassium measurement (mass/ volume)Ordered By: Caridad Haas on 07-11-2024 Potassium (Unsp spec) [Mass/Vol] 3.8 mmol/L 3.3-5.1 [facility] RBC Auto (Bld) [#/Vol]Ordere d By: Caridad Haas on 07-11-2024 RBC (Bld) [#/Vol] 4.55 10*6/uL 4.2-5.4 [facility] Screening total cholesterol/ high density lipoprotein (HDL) cholesterol ratioOrdered By: Caridad Haas on 07-11-2024 Cholesterol.total/Cholest gene in HDL [Mass ratio] 4.24 {ratio} [facility] Serum creatinine measurement (mass/volume)Ordered By: Caridad Haas on 07-11-2024 Creatinine [Mass/Vol] 0.98 mg/dL 0.70-1.20 [facility] Serum globulin measurementOr dered By: Caridad Haas on 07-11-2024 Globulin (S) [Mass/Vol] 3.0 g/dL 2.2-4.2 [facility] Serum glucose measurement (m ass/volume)Ordered By: Caridad Haas on 07-11-2024 Glucose [Mass/Vol] 101 mg/dL High 70-99 [facility] Serum or plasma alanine shipman otransferase (ALT) measurementOrdered By: Caridad Haas on 07-11-2024 ALT [Catalytic activity/Vol] 22 U/L <35 [facility] Serum or plasma albumin lore urement (mass/volume)Ordered By: Caridad Haas on 07-11-2024 Albumin [Mass/Vol] 4.5 g/dL 3.5-5.0 [facility] Serum or plasma albumin/glob ulin mass ratioOrdered By: Caridad Haas on 07-11-2024 Albumin/Globulin [Mass ratio] 1.5 {ratio} 0.9-2.4 [facility] Serum or plasma alkaline baldo sphatase measurementOrdered By: Caridad Haas on 07-11-2024 ALP [Catalytic activity/Vol] 84 U/L 35-104 [facility] Serum or plasma calcium lore urement (mass/volume)Ordered By: Caridad Haas on 07-11-2024 Calcium [Mass/Vol] 9.9 mg/dL 7.6-11.0 [facility] Serum or plasma cholesterol in HDL measurement (mass/volume)Ordered By: Caridad Haas on 07-11-2024 Cholesterol in HDL [Mass/Vol] 65 mg/dL >40 [facility] Comment on above: National Cholesterol Education Program (NCEP) guidelines:<40 mg/dL: Low HDL-cholesterol (major risk factor for CHD)>= 60 mg/dL: High HDL-cholesterol (negative risk factor for CHD)HDL-cholesterol is affected by a number of factors, e.g. smoking, exercise, hormones, sex and age. Serum or plasma cholesterol measurement (mass/volume)Ordered By: Caridad Haas on 07-11-2024 Cholesterol [Mass/Vol] 274 mg/dL High <201 [facility] Comment on above: Cholesterol level, D esirable <200 mg/dLBorderline high cholesterol 200-239 mg/dLHigh cholesterol >=240 mg/dLRecommendations of the NCEP Adult Treatment Panel for the following risk-cutoff thresholds for the [place] population. Serum or plasma urea nitroge n measurement (mass/volume)Ordered By: Caridad Haas on 07-11-2024 Urea nitrogen [Mass/Vol] 19 mg/dL 4-19 [facility] Sodium levelOrdered By: Lisa Haas on 07-11-2024 Sodium [Moles/Vol] 141 mmol/L 133-145 [facility] Total proteinOrdered By: Lukasz Haas on 07-11-2024 Protein [Mass/Vol] 7.5 g/dL 5.9-8.4 [facility] Triglycerides measurementOrd ered By: Caridad Haas on 07-11-2024 Triglyceride [Mass/Vol] 168 mg/dL <199 [facility] Comment on above: The drugs N-Acetylcy steine and Metamizole may falsely depress this assay. Normal range: <150 mg/dLBorderline High: 150-199 mg/dLHigh: 200-499 mg/dLVery High: >500 mg/dL White blood cell (WBC) count Ordered By: Caridad Haas on 07-11-2024 WBC (Bld) [#/Vol] 6.6 10*3/uL 4.4-11.0 [facility] Absolute lymphocyte countOrd ered By: Caridad Haas on 11-17-2022 Lymphocytes Auto (Unsp spec) [#/Vol] 2.02 10*3/uL 0.83-4.51 [facility] Basophil percentageOrdered B y: Caridad Haas on 11-17-2022 Basophils/100 WBC (Bld) 0.7 % 0-1 [facility] Bilirubin [Mass/Vol] 0.50 mg/dL 0.20-1.00 [facility] Comment on above: For patients on eltr ombopag therapy, use of Dimension [place] TBIL is not recommended. Chloride [Moles/Vol] 103 mmol/L 98-107 [facility] Cholesterol [Mass/Vol] 350 mg/dL <200 [facility] Comment on above: <200 mg/dL Desirable 200-240 mg/dL Borderline >240 mg/dL High Risk Eosinophils/100 WBC (Bld) 4.6 % 0-5 [facility] Glucose [Mass/Vol] 100 mg/dL 74-106 [facility] Comment on above: Fasting Glucose resu lt from 100 to 125 mg/dL suggests IMPAIRED HOMEOSTASIS per A.D.A. criteria. Neutrophils (Bld) [#/Vol] 3.6 10*3/uL 2.0-7.7 [facility] Neutrophils/100 WBC (Bld) 54.2 % 47-70 [facility] Potassium [Moles/Vol] 3.8 mmol/L 3.5-5.1 [facility] Protein [Mass/Vol] 7.6 g/dL 6.4-8.2 [facility] Sodium [Moles/Vol] 137 mmol/L 136-145 [facility] Triglyceride [Mass/Vol] 198 mg/dL <199 [facility] Comment on above: The drugs N-Acetylcy steine and Metamizole may falsely depress this assay.Serum Triglycerides Reference Interval Normal <150 mg/dL Borderline high 150 - 199 mg/dL High 200 - 499 mg/dL Very High > or = 500 mg/dL WBC (Bld) [#/Vol] 6.7 10*3/uL 4.4-11.0 [facility] Blood erythrocytes count (nu mber/volume)Ordered By: Caridad Haas on 11-17-2022 RBC (Bld) [#/Vol] 4.68 10*6/uL 4.2-5.4 [facility] Blood hemoglobin measurement (mass/volume)Ordered By: Caridad Haas on 11-17-2022 Hemoglobin (Bld) [Mass/Vol] 14.4 g/dL 12.0-15.0 [facility] Blood lymphocytes/100 leukoc ytesOrdered By: Caridad Haas on 11-17-2022 Lymphocytes/100 WBC (Bld) 30.0 % 19-41 [facility] Blood monocytes/100 leukocyt esOrdered By: Caridad Haas on 11-17-2022 Monocytes/100 WBC (Bld) 10.4 % 0-10 [facility] Blood platelet mean volumeOr dered By: Caridad Haas on 11-17-2022 Platelet mean volume (Bld) [Entitic vol] 9.5 fL 6.2-12.0 [facility] Determination of erythrocyte mean corpuscular volume (MCV)Ordered By: Caridad Haas on 11-17-2022 MCV (RBC) [Entitic vol] 91.7 fL 81-99 [facility] Hematocrit Auto (Bld) [Volum e fraction]Ordered By: Caridad Haas on 11-17-2022 Hematocrit (Bld) [Volume fraction] 42.9 % 37-47 [facility] Laboratory - Chemistry and C hemistry - challengeOrdered By: Caridad Haas on 11-17-2022 ALP [Catalytic activity/Vol] 76 U/L 45-117 [facility] ALT [Catalytic activity/Vol] 25 U/L 13-56 [facility] CO2 [Moles/Vol] 33.0 mmol/L 21.0-32.0 [facility] Globulin (S) [Mass/Vol] 3.7 g/dL 2.2-4.2 [facility] Urea nitrogen/Creatinine [Mass ratio] 25.0 mg/mg 10-20 [facility] Laboratory - Hematology and Cell countsOrdered By: Caridad Haas on 11-17-2022 Erythrocyte distribution width (RBC) [Entitic vol] 43.6 fL 35.1-43.9 [facility] Erythrocyte distribution width (RBC) [Ratio] 13.0 % 11.6-14.6 [facility] Immature granulocytes/100 WBC (Bld) 0.100 % 0.0-0.9 [facility] Comment on above: IG% - Immature Granu locytes (promyelocytes, myelocytes and metamyelocytes) > 1% indicates that a LEFT SHIFT is Present. MCH (RBC) [Entitic mass] 30.8 pg 27.0-32.0 [facility] Nucleated RBC/100 WBC (Bld) [Ratio] 0 % 0-5 [facility] MCHC Auto (RBC) [Mass/Vol]Or dered By: Caridad Haas on 11-17-2022 MCHC (RBC) [Mass/Vol] 33.6 g/dL 32-36 [facility] No Panel InformationOrdered By: Caridad Haas on 11-17-2022 Estimated GFR (MDRD) Amer 75 mL/min >60 [facility] Comment on above: GFR Calc Estimated GFR (MDRD) Non-Af Amer 62 mL/min >60 [facility] Comment on above: Non- GFR Calc Platelets bldOrdered By: Lukasz Haas on 11-17-2022 Platelets (Bld) [#/Vol] 352 10*3/uL 150-450 [facility] Serum or plasma albumin lore urement (mass/volume)Ordered By: Caridad Haas on 11-17-2022 Albumin [Mass/Vol] 3.9 g/dL 3.2-5.0 [facility] Serum or plasma albumin/glob ulin mass ratioOrdered By: Caridad Haas on 11-17-2022 Albumin/Globulin [Mass ratio] 1.1 {ratio} 0.9-2.4 [facility] Serum or plasma calcium lore urement (mass/volume)Ordered By: Caridad Haas on 11-17-2022 Calcium [Mass/Vol] 9.5 mg/dL 8.5-10.1 [facility] Serum or plasma cholesterol in HDL measurement (mass/volume)Ordered By: Caridad Haas on 11-17-2022 Cholesterol in HDL [Mass/Vol] 71 mg/dL >40 [facility] Comment on above: The drugs N-Acetylcy steine and Metamizole may falsely depress this assay. Reference Range HDL <40 mg/dL Low HDL Cholesterol HDL >or= 60 mg/dL High HDL Cholesterol Serum or plasma cholesterol in VLDL measurement (mass/volume)Ordered By: Caridad Haas on 11-17-2022 Cholesterol in VLDL [Mass/Vol] 40 mg/dL 5-40 [facility] Serum or plasma creatinine m easurement (mass/volume)Ordered By: Caridad Haas on 11-17-2022 Creatinine [Mass/Vol] 1.00 mg/dL 0.55-1.02 [facility] Comment on above: The validity of the calculated GFR & GFRAA in patients over 70 years has not been determined. Clinical correlation is essential. Serum or plasma low density lipoprotein (LDL) cholesterol measurement (mass/volume)[facility] Cholesterol in LDL [Mass/Vol] 239 mg/dL 0-130 [facility] Serum or plasma urea nitroge n measurement (mass/volume)[facility]: [facility]-17[facility]22 Urea nitrogen [Mass/Vol] 25 mg/dL 7-18 [facility] Thin prep Papanicolaou smear with manual screeningOrdered By: [facility] on 11-17-2022 Thin prep Papanicolaou smear with manual screening 22 U/L 15-37 [facility] Thin prep Papanicolaou smear with manual screening 1 5-15 [facility] Absolute lymphocyte counton 07-15-2021 Lymphocytes Auto (Unsp spec) [#/Vol] 2.37 10*3/uL 0.83-4.51 [facility] Work Phone: Basophil percentageon 2021 Basophils/100 WBC (Bld) 0.7 % 0-1 [facility] Work Phone: Bilirubin [Mass/Vol] 0.40 mg/dL 0.20-1.00 [facility] Work Phone: Comment on above: For patients on eltr ombopag therapy, use of Dimension [place] TBIL is not recommended. Chloride [Moles/Vol] 103 mmol/L 98-107 [facility] Work Phone: Cholesterol [Mass/Vol] 268 mg/dL <200 [facility] Work Phone: Comment on above: <200 mg/dL Desirable 200-240 mg/dL Borderline >240 mg/dL High Risk Eosinophils/100 WBC (Bld) 4.7 % 0-5 [facility] Work Phone: Glucose [Mass/Vol] 96 mg/dL 74-106 [facility] Work Phone: Neutrophils (Bld) [#/Vol] 4.5 10*3/uL 2.0-7.7 [facility] Work Phone: Neutrophils/100 WBC (Bld) 55.0 % 47-70 [facility] Work Phone: Potassium [Moles/Vol] 3.2 mmol/L 3.5-5.1 [facility] Work Phone: Protein [Mass/Vol] 7.5 g/dL 6.4-8.2 [facility] Work Phone: [phone] Sodium [Moles/Vol] 140 mmol/L 136-145 [facility] Work Phone: Triglyceride [Mass/Vol] 268 mg/dL [facility] Work Phone: Comment on above: The drugs N-Acetylcy steine and Metamizole may falsely depress this assay.Serum Triglycerides Reference Interval Normal <150 mg/dL Borderline high 150 - 199 mg/dL High 200 - 499 mg/dL Very High > or = 500 mg/dL WBC (Bld) [#/Vol] 8.1 10*3/uL 4.4-11.0 [facility] Work Phone: Blood erythrocytes count (nu mber/volume)on 07-15-2021 RBC (Bld) [#/Vol] 4.54 10*6/uL 4.2-5.4 [facility] Work Phone: Blood hemoglobin measurement (mass/volume)on 07-15-2021 Hemoglobin (Bld) [Mass/Vol] 14.2 g/dL 12.0-15.0 [facility] Work Phone: Blood lymphocytes/100 leukoc yteson 07-15-2021 Lymphocytes/100 WBC (Bld) 29.2 % 19-41 [facility] Work Phone: Blood monocytes/100 leukocyt eson 07-15-2021 Monocytes/100 WBC (Bld) 10.2 % 0-10 [facility] Work Phone: Blood platelet mean volumeon 07-15-2021 Platelet mean volume (Bld) [Entitic vol] 9.6 fL 6.2-12.0 [facility] Work Phone: Determination of erythrocyte mean corpuscular volume (MCV)on 07-15-2021 MCV (RBC) [Entitic vol] 92.7 fL 81-99 [facility] Work Phone: Hematocrit Auto (Bld) [Volum e fraction]on 07-15-2021 Hematocrit (Bld) [Volume fraction] 42.1 % 37-47 [facility] Work Phone: Laboratory - Chemistry and C hemistry - challengeon 07-15-2021 ALP [Catalytic activity/Vol] 61 U/L 45-117 [facility] Work Phone: ALT [Catalytic activity/Vol] 23 U/L 13-56 [facility] Work Phone: CO2 [Moles/Vol] 31.0 mmol/L 21.0-32.0 [facility] Work Phone: Globulin (S) [Mass/Vol] 3.6 g/dL 2.2-4.2 [facility] Work Phone: Urea nitrogen/Creatinine [Mass ratio] 17.1 mg/mg 10-20 [facility] Work Phone: Laboratory - Hematology and Cell countson 07-15-2021 Erythrocyte distribution width (RBC) [Entitic vol] 45.8 fL 35.1-43.9 [facility]: Erythrocyte distribution width (RBC) [Ratio] 13.5 % 11.6-14.6 [facility] Work Phone: Immature granulocytes/100 WBC (Bld) 0.200 % 0.0-0.9 [facility] Work Phone: Comment on above: IG% - Immature Granu locytes (promyelocytes, myelocytes and metamyelocytes) > 1% indicates that a LEFT SHIFT is Present. MCH (RBC) [Entitic mass] 31.3 pg 27.0-32.0 [facility] Work Phone: Nucleated RBC/100 WBC (Bld) [Ratio] 0 % 0-5 [facility] Work Phone: MCHC Auto (RBC) [Mass/Vol]on 07-15-2021 MCHC (RBC) [Mass/Vol] 33.7 g/dL 32-36 [facility] Work Phone: No Panel Informationon 07-15 Estimated GFR (MDRD) Amer 94 mL/min >60 [facility] Work Phone: Comment on above: GFR Calc Estimated GFR (MDRD) Non-Af Amer 78 mL/min >60 [facility] Work Phone: Comment on above: Non- GFR Calc Platelets bldon 07-15-2021 Platelets (Bld) [#/Vol] 357 10*3/uL 150-450 [facility] Work Phone: Serum or plasma albumin lore urement (mass/volume)on 07-15-2021 Albumin [Mass/Vol] 3.9 g/dL 3.2-5.0 [facility] Work Phone: Serum or plasma albumin/glob ulin mass ratioon 07-15-2021 Albumin/Globulin [Mass ratio] 1.1 {ratio} 0.9-2.4 [facility] Work Phone: Serum or plasma calcium lore urement (mass/volume)on 07-15-2021 Calcium [Mass/Vol] 8.8 mg/dL 8.5-10.1 [facility] Work Phone: Serum or plasma cholesterol in HDL measurement (mass/volume)on 07-15-2021 Cholesterol in HDL [Mass/Vol] 66 mg/dL [facility] Work Phone: Comment on above: The drugs N-Acetylcy steine and Metamizole may falsely depress this assay. Reference Range HDL <40 mg/dL Low HDL Cholesterol HDL >or= 60 mg/dL High HDL Cholesterol Serum or plasma cholesterol in VLDL measurement (mass/volume)on 07-15-2021 Cholesterol in VLDL [Mass/Vol] 54 mg/dL 5-40 [facility] Work Phone: Serum or plasma creatinine m easurement (mass/volume)on 07-15-2021 Creatinine [Mass/Vol] 0.82 mg/dL 0.55-1.02 [facility] Work Phone: Comment on above: The validity of the calculated GFR & GFRAA in patients over 70 years has not been determined. Clinical correlation is essential. Serum or plasma low density lipoprotein (LDL) cholesterol measurement (mass/volume)on 07-15-2021 Cholesterol in LDL [Mass/Vol] 148 mg/dL 0-130 [facility] Work Phone: Serum or plasma urea nitroge n measurement (mass/volume)on 07-15-2021 Urea nitrogen [Mass/Vol] 14 mg/dL 7-18 [facility] Work Phone: Thin prep Papanicolaou smear with manual screeningon 07-15-2021 Thin prep Papanicolaou smear with manual screening 22 U/L 15-37 [facility] Work Phone: Thin prep Papanicolaou smear with manual screening 6 5-15 [facility] Work Phone: PROGRESSon 03-30-2019 PROGRESS HNO ID: [id number] Author: Monisha Trimble Service: ? Author Type: Vacuum Tester Cans Type: Progress Notes Filed: 03/30/2019 9:19 AM Note Text: POP[facility]ATION [facility] ENVIRONMENTAL PROJECTS ADVISOR QUICKNOTE Provider Action/FYI: 3rd "call can not be completed as dialed" Letters mailed to patient. Patient identified by name and . Monisha Trimble CMA [facility] PROGRESSon 03-24-2019 PROGRESS HNO ID: [id number] Author: Monisha Trimble Service: ? Author Type: Vacuum Tester Cans Type: Progress Notes Filed: 03/30/2019 9:19 AM Note Text: POP[facility]ATION [facility] ENVIRONMENTAL PROJECTS ADVISOR QUICKNOTE Provider Action/FYI: 2nd attempt - Left message for patient to return call #[phone] Patient identified by name and . Monisha Trimble CMA [facility] PROGRESSon 03-23-2019 PROGRESS HNO ID: [id number] Author: Monisha Trimble Service: ? Author Type: Vacuum Tester Cans Type: Progress Notes Filed: 03/30/2019 9:19 AM Note Text: [facility] ENVIRONMENTAL PROJECTS ADVISOR QUICKNOTE Provider Action/FYI: 1st attempt - Left message for patient to return call #[phone] Patient identified by name and . Monisha Trimble CMA [facility] CNPTOUTREACHon 03-19-2019 CNPTOUTREACH Patient Outreach (INTMWS) ---- LEIA LEW ([id number]) 1970 F Date Time Provider Department 03/19/19 MONISHA TRIMBLE) INTMWS During your visit today, we recorded the following information about you: Monisha Trimble CMA 03/30/2019 9:19 AM Signed [facility] CARE GAP REGISTRY DOCUMENTATION (OUTSIDE TEAMLET) Provider Action/FYI: PSR Action/FYI: - due for Physical (last PCP appointment 03/15/2017) with labs prior Health Maintenance Due: BP CONTROLLED (<130/80) due on 1988 DTAP,TDAP,TD(2 - Tdap) due on 03/11/2012 MAMMOGRAM due on 09/06/2017 ANNUAL PCP TEAM CHRONIC DISEASE VISIT due on 04/05/2018 PAP TESTING due on 05/08/2018 HPV TESTING due on 05/08/2018 INFLUENZA(1) due on 11/09/2018 Patient identified by name and date of . Last BP/Labs: Blood Pressure: Last 3 Encounter BP Readings: Date: BP: 04/05/2017 134/86 03/15/2017 110/80 08/28/2016 124/89 Lipids: Cholesterol, Total (mg/dL) Date Value 08/24/2016 232 11/21/2015 185 HDL Cholesterol (mg/dL) Date Value 08/24/2016 70 11/21/2015 67 LDL Cholesterol (mg/dL) Date Value 08/24/2016 139 11/21/2015 96 Triglyceride (mg/dL) Date Value 08/24/2016 113 11/21/2015 109 HGB A1C: No results found for: HBA1C TSH: No results found for: TSH) ? Patient has the following care gap registry disease diagnosis:HTN ? Hyperlipidemia ? Patient has the following open care gaps: Health Maintenance Due: BP CONTROLLED (<130/80) due on 1988 DTAP,TDAP,TD(2 - Tdap) due on 03/11/2012 MAMMOGRAM due on 09/06/2017 ANNUAL PCP TEAM CHRONIC DISEASE VISIT due on 04/05/2018 PAP TESTING due on 05/08/2018 HPV TESTING due on 05/08/2018 INFLUENZA(1) due on 11/09/2018 ? Last office visit: 03/15/2017 ? Future office visit: Physical next available with pcp or reconciliation accountant JANUARY Pace CMA 03/30/2019 9:19 AM Signed [facility] ASSISTANT QUICKNOTE Provider Action/FYI: 1st attempt - Left message for patient to return call #[phone] Patient identified by name and . JANUARY Pace CMA 03/30/2019 9:19 AM Signed [facility] ASSISTANT QUICKNOTE Provider Action/FYI: 2nd attempt - Left message for patient to return call #[phone] Patient identified by name and . JANUARY Pace [facility] 03/30/2019 9:19 AM Signed [facility] ASSISTANT QUICKNOTE Provider Action/FYI: 3rd "call can not be completed as dialed" Letters mailed to patient. Patient identified by name and . Monisha Trimble CMA Allergies As of Date: 03/19/2019 Noted Allergy Reaction LISINOPRIL 08/28/2016 3 - Cough Date Reviewed: 04/05/2017 Reviewed by: Derrick Vasquez Ma - Fully Assessed Reason for Visit: [facility]/Care Gap Outreach [[id number]] Prescriptions as of 03/19/2019 Sig: TRIAMTERENE 37.5 MG-HYDROCHLO* Take 1 capsule by mouth once * SIMVASTATIN 20 MG TABLET Take 1 tablet by mouth daily * METHOCARBAMOL 500 MG TABLET Take 1 tablet by mouth at bed* MELOXICAM 15 MG TABLET Take 1 tablet by mouth once d* Patient not taking: Reported on 04/05/2017 Problem List As Of Date 03/19/2019 Noted Resolved Mixed hyperlipidemia [E78.2] 01/25/2006 More... Hypokalemia [E87.6] 08/28/2016 More... Essential hypertension [I10] 08/28/2016 More... Letter Text Letter Text Encounter Status:Closed by MONISHA TRIMBLE CMA on 03/30/19 [facility] PRO[facility] 03-19-2019 PROGRESS HNO ID: [id number] Author: Monisha Trimble Service: ? Author Type: Vacuum Tester Cans Type: Progress Notes Filed: 03/30/2019 9:19 AM Note Text: [facility] CARE GAP REGISTRY DOCUMENTATION (OUTSIDE TEAMLET) Provider Action/FYI: PSR Action/FYI: - due for Physical (last PCP appointment 03/15/2017) with labs prior Health Maintenance Due: BP CONTROLLED (<130/80) due on 1988 DTAP,TDAP,TD(2 - Tdap) due on 03/11/2012 MAMMOGRAM due on 09/06/2017 ANNUAL PCP TEAM CHRONIC DISEASE VISIT due on 04/05/2018 PAP TESTING due on 05/08/2018 HPV TESTING due on 05/08/2018 INFLUENZA(1) due on 11/09/2018 Patient identified by name and date of . Last BP/Labs: Blood Pressure: Last 3 Encounter BP Readings: Date: BP: 04/05/2017 134/86 03/15/2017 110/80 08/28/2016 124/89 Lipids: Cholesterol, Total (mg/dL) Date Value 08/24/2016 232 11/21/2015 185 HDL Cholesterol (mg/dL) Date Value 08/24/2016 70 11/21/2015 67 LDL Cholesterol (mg/dL) Date Value 08/24/2016 139 11/21/2015 96 Triglyceride (mg/dL) Date Value 08/24/2016 113 11/21/2015 109 HGB A1C: No results found for: HBA1C TSH: No results found for: TSH) ? Patient has the following care gap registry disease diagnosis:HTN ? Hyperlipidemia ? Patient has the following open care gaps: Health Maintenance Due: BP CONTROLLED (<130/80) due on 1988 DTAP,TDAP,TD(2 - Tdap) due on 03/11/2012 MAMMOGRAM due on 09/06/2017 ANNUAL PCP TEAM CHRONIC DISEASE VISIT due on 04/05/2018 PAP TESTING due on 05/08/2018 HPV TESTING due on 05/08/2018 INFLUENZA(1) due on 11/09/2018 ? Last office visit: 03/15/2017 ? Future office visit: Physical next available with pcp or reconciliation accountant Monisha Trimble CMA [facility] PROGRESSon 01-29-2019 PROGRESS HNO ID: [id number] Author: Monisha Trimble Service: ? Author Type: Vacuum Tester Cans Type: Progress Notes Filed: 01/29/2019 8:49 AM Note Text: [facility] ENVIRONMENTAL PROJECTS ADVISOR QUICKNOTE Provider Action/FYI: Letter mailed to patient. Patient identified by name and . Monisha Trimble CMA [facility] PROGRESS HNO ID: [id number] Author: Monisha Trimble Service: ? Author Type: Vacuum Tester Cans Type: Progress Notes Filed: 01/29/2019 8:49 AM Note Text: [facility] ENVIRONMENTAL PROJECTS ADVISOR QUICKNOTE Provider Action/FYI: 3rd attempt - Left message for patient to return call #[phone] Mailing letter to patient. Patient identified by name and . Monisha Trimble CMA [facility] PROGRESSon 01-27-2019 PROGRESS HNO ID: [id number] Author: Monisha Trimble Service: ? Author Type: Vacuum Tester Cans Type: Progress Notes Filed: 01/29/2019 8:49 AM Note Text: [facility]ALTH ENVIRONMENTAL PROJECTS ADVISOR QUICKNOTE Provider Action/FYI: 2nd attempt - Left message for patient to return call #[phone] Patient identified by name and . Monisha Trimble CMA [facility] CNPTOUTREACHon 01-22-2019 CNPTOUTREACH Patient Outreach (INTMWS) ---- LEIA LEW ([id number]) 1970 F Date Time Provider Department 01/22/19 MONISHA TRIMBLE) INTMWS During your visit today, we recorded the following information about you: Monisha Trimble CMA 01/29/2019 8:49 AM Signed [facility] TEAMLET DOCUMENTATION Provider Action/FYI: PSR Action/FYI: - due for physical (last appointment 04/05/[address] Ramirez) With labs prior Health Maintenance Due: BP CONTROLLED (<130/80) due on 1988 DTAP,TDAP,TD(2 - Tdap) due on 03/11/2012 MAMMOGRAM due on 09/06/2017 ANNUAL PCP TEAM CHRONIC DISEASE VISIT due on 04/05/2018 PAP TESTING due on 05/08/2018 HPV TESTING due on 05/08/2018 INFLUENZA(1) due on 11/09/2018 Teamlet has identified patient by name and date of . Team: Dr. Enio Bearden ? Last Office Visit:Visit date not found ? Next Office Visit: Visit date not found ? Last BP/Labs: Blood Pressure: Last 3 Encounter BP Readings: Date: BP: 04/05/2017 134/86 03/15/2017 110/80 08/28/2016 124/89 Lipids: Cholesterol, Total (mg/dL) Date Value 08/24/2016 232 11/21/2015 185 HDL Cholesterol (mg/dL) Date Value 08/24/2016 70 11/21/2015 67 LDL Cholesterol (mg/dL) Date Value 08/24/2016 139 11/21/2015 96 Triglyceride (mg/dL) Date Value 08/24/2016 113 11/21/2015 109 HGB A1C: No results found for: HBA1C TSH: No results found for: TSH) Care Gap: HTN Hyperlipidemia Plan: ? Confirm PCP / Status - unknown ? Type of appointment needed: Physical next available with pcp or reconciliation accountant ? Consultation Appointments: n/a Labs, HM and Immunization: Health Maintenance Due: BP CONTROLLED (<130/80) due on 1988 DTAP,TDAP,TD(2 - Tdap) due on 03/11/2012 MAMMOGRAM due on 09/06/2017 ANNUAL PCP TEAM CHRONIC DISEASE VISIT due on 04/05/2018 PAP TESTING due on 05/08/2018 HPV TESTING due on 05/08/2018 INFLUENZA(1) due on 11/09/2018 JANUARY Paec CMA 01/29/2019 8:49 AM Signed [facility] ENVIRONMENTAL PROJECTS ADVISOR QUICKNOTE Provider Action/FYI: 1st attempt - Left message for patient to return call #[phone] Patient identified by name and . JANUARY Pace CMA 01/29/2019 8:49 AM Signed [facility] ENVIRONMENTAL PROJECTS ADVISOR HEBERE Provider Action/FYI: 2nd attempt - Left message for patient to return call #[phone] Patient identified by name and . JANUARY Pace CMA 01/29/2019 8:49 AM Signed [facility] ENVIRONMENTAL PROJECTS ADVISOR HEBERE Provider Action/FYI: 3rd attempt - Left message for patient to return call #[phone] Mailing letter to patient. Patient identified by name and . JANUARY Pace CMA 01/29/2019 8:49 AM Signed [facility] ASS[facility] HEBERE Provider Action/FYI: Letter mailed to patient. Patient identified by name and . Monisha Trimble CMA Allergies As of Date: 01/22/2019 Noted Allergy Reaction LISINOPRIL 08/28/2016 3 - Cough Date Reviewed: 04/05/2017 Reviewed by: Derrick Vasquez Ma - Fully Assessed Reason for Visit: PHMA/Care Gap Outreach [[id number]] Prescriptions as of 01/22/2019 Sig: TRIAMTERENE 37.5 MG-HYDROCHLO* Take 1 capsule by mouth once * SIMVASTATIN 20 MG TABLET Take 1 tablet by mouth daily * METHOCARBAMOL 500 MG TABLET Take 1 tablet by mouth at bed* MELOXICAM 15 MG TABLET Take 1 tablet by mouth once d* Patient not taking: Reported on 04/05/2017 Problem List As Of Date 01/22/2019 Noted Resolved Mixed hyperlipidemia [E78.2] 01/25/2006 More... Hypokalemia [E87.6] 08/28/2016 More... Essential hypertension [I10] 08/28/2016 More... Letter Text Encounter Status:Closed by MONISHA TRIMBLE CMA on 01/29/19 [facility] PROGRESSon 01-22-2019 PROGRESS HNO ID: [id number] Author: Monisha Trimble Service: ? Author Type: Vacuum Tester Cans Type: Progress Notes Filed: 01/29/2019 8:49 AM Note Text: [facility] ENVIRONMENTAL PROJECTS ADVISOR HEBERE Provider Action/FYI: 1st attempt - Left message for patient to return call #[phone] Patient identified by name and . Monisha Trimble CMA [facility] PROGRESS HNO ID: [id number] Author: Monisha Trimble Service: ? Author Type: Vacuum Tester Cans Type: Progress Notes Filed: 01/29/2019 8:49 AM Note Text: [facility] TEAMLET DOCUMENTATION Provider Action/FYI: PSR Action/FYI: - due for physical (last appointment 04/05/[address] Ramirez) With labs prior Health Maintenance Due: BP CONTROLLED (<130/80) due on 1988 DTAP,TDAP,TD(2 - Tdap) due on 03/11/2012 MAMMOGRAM due on 09/06/2017 ANNUAL PCP TEAM CHRONIC DISEASE VISIT due on 04/05/2018 PAP TESTING due on 05/08/2018 HPV TESTING due on 05/08/2018 INFLUENZA(1) due on 11/09/2018 Teamlet has identified patient by name and date of . Team: Dr. Enio Bearden ? Last Office Visit:Visit date not found ? Next Office Visit: Visit date not found ? Last BP/Labs: Blood Pressure: Last 3 Encounter BP Readings: Date: BP: 04/05/2017 134/86 03/15/2017 110/80 08/28/2016 124/89 Lipids: Cholesterol, Total (mg/dL) Date Value 08/24/2016 232 11/21/2015 185 HDL Cholesterol (mg/dL) Date Value 08/24/2016 70 11/21/2015 67 LDL Cholesterol (mg/dL) Date Value 08/24/2016 139 11/21/2015 96 Triglyceride (mg/dL) Date Value 08/24/2016 113 11/21/2015 109 HGB A1C: No results found for: HBA1C TSH: No results found for: TSH) Care Gap: HTN Hyperlipidemia Plan: ? Confirm PCP / Status - unknown ? Type of appointment needed: Physical next available with pcp or reconciliation accountant ? Consultation Appointments: n/a Labs, HM and Immunization: Health Maintenance Due: BP CONTROLLED (<130/80) due on 1988 DTAP,TDAP,TD(2 - Tdap) due on 03/11/2012 MAMMOGRAM due on 09/06/2017 ANNUAL PCP TEAM CHRONIC DISEASE VISIT due on 04/05/2018 PAP TESTING due on 05/08/2018 HPV TESTING due on 05/08/2018 INFLUENZA(1) due on 11/09/2018 Monisha Trimble [facility] PROGRESSon 10-17-2018 PROGRESS HNO ID: [id number] Author: Monisha Trimble Service: ? Author Type: Vacuum Tester Cans Type: Progress Notes Filed: 10/17/2018 2:59 PM Note Text: [facility] ENVIRONMENTAL PROJECTS ADVISOR QUICKNOTE Provider Action/FYI: Certified letter received and signed 10/13/2018. Patient identified by name and . Monisha Trimble [facility] PROGRESSon 10-08-2018 PROGRESS HNO ID: [id number] Author: Monisha Trimble Service: ? Author Type: Vacuum Tester Cans Type: Progress Notes Filed: 10/08/2018 8:57 AM Note Text: [facility] ENVIRONMENTAL PROJECTS ADVISOR QUICKNOTE Provider Action/FYI: 3rd attempt - Left message for patient to return call #[phone] Mailed certified letter to patient. Patient identified by name and . Monisha Trimble CMA [facility] PROGRESSon 10-07-2018 PROGRESS HNO ID: [id number] Author: Monisha Trimble Service: ? Author Type: Vacuum Tester Cans Type: Progress Notes Filed: 10/08/2018 8:57 AM Note Text: [facility] ENVIRONMENTAL PROJECTS ADVISOR QUICKNOTE Provider Action/FYI: 2nd attempt - Left message for patient to return call #[phone] Patient identified by name and . Monisha Trimble [facility] PROGRESSon 10-03-2018 PROGRESS HNO ID: [id number] Author: Monisha Trimble Service: ? Author Type: Vacuum Tester Cans Type: Progress Notes Filed: 10/08/2018 8:57 AM Note Text: [facility] ENVIRONMENTAL PROJECTS ADVISOR QUICKNOTE Provider Action/FYI: 1st attempt - Left message for patient to return call #[phone] Patient identified by name and . Monisha Trimble [facility] CNPTOUTREACHon 10-02-2018 CNPTOUTREA Patient Outreach (INT[facility]) ---- LEIA LEW ([id number]) 1970 F Date Time Provider Department [facility] During your visit today, we recorded the following information about you: Monisha Trimble CMA 10/08/2018 8:57 AM Signed PHMA TEAMLET DOCUMENTATION Provider Action/FYI: PSR Action/FYI: - due for physical with labs prior (already ordered) - send certified letter if unable to contact patient - review HM Health Maintenance Due: BP CONTROLLED (<130/80) due on 1988 DTAP,TDAP,TD(2 - Tdap) due on 03/11/2012 MAMMOGRAM due on 09/06/2017 - ordered ANNUAL PCP TEAM CHRONIC DISEASE VISIT due on 04/05/2018 PAP TESTING due on 05/08/2018 HPV TESTING due on 05/08/2018 Teamlet has identified patient by name and date of . Team: Matt Page ? Last Office Visit:Visit date not found ? Next Office Visit: Visit date not found ? Last BP/Labs: Blood Pressure: Last 3 Encounter BP Readings: Date: BP: 04/05/2017 134/86 03/15/2017 110/80 08/28/2016 124/89 Lipids: Cholesterol, Total (mg/dL) Date Value 08/24/2016 232 11/21/2015 185 HDL Cholesterol (mg/dL) Date Value 08/24/2016 70 11/21/2015 67 LDL Cholesterol (mg/dL) Date Value 08/24/2016 139 11/21/2015 96 Triglyceride (mg/dL) Date Value 08/24/2016 113 11/21/2015 109 HGB A1C: No results found for: HBA1C TSH: No results found for: TSH) Care Gap: HTN Hyperlipidemia Plan: ? Confirm PCP / Status - unknown ? Type of appointment needed: Physical next available with pcp or reconciliation accountant ? Consultation Appointments: N/A Labs, HM and Immunization: Health Maintenance Due: BP CONTROLLED (<130/80) due on 1988 DTAP,TDAP,TD(2 - Tdap) due on 03/11/2012 MAMMOGRAM due on 09/06/2017 - ordered ANNUAL PCP TEAM CHRONIC DISEASE VISIT due on 04/05/2018 PAP TESTING due on 05/08/2018 HPV TESTING due on 05/08/2018 JANUARY Pace CMA 10/08/2018 8:57 AM Signed [facility] ENVIRONMENTAL PROJECTS ADVISOR QUICKNOTE Provider Action/FYI: 1st attempt - Left message for patient to return call #[phone] Patient identified by name and . JANUARY Pace CMA 10/08/2018 8:57 AM Signed [facility] ENVIRONMENTAL PROJECTS ADVISOR QUICKNOTE Provider Action/FYI: 2nd attempt - Left message for patient to return call #[phone] Patient identified by name and . JANUARY Pace CMA 10/08/2018 8:57 AM Signed [facility] ENVIRONMENTAL PROJECTS ADVISOR QUICKNOTE Provider Action/FYI: 3rd attempt - Left message for patient to return call #[phone] Mailed certified letter to patient. Patient identified by name and . JANUARY Pace CMA 10/17/2018 2:59 PM Signed [facility] ENVIRONMENTAL PROJECTS ADVISOR QUICKNOTE Provider Action/FYI: Certified letter received and signed 10/13/2018. Patient identified by name and . Monisha Trimble CMA Allergies As of Date: 10/02/2018 Noted Allergy Reaction LISINOPRIL 08/28/2016 3 - Cough Date Reviewed: 04/05/2017 Reviewed by: Derrick Vasquez Ma - Fully Assessed Reason for Visit: PHMA/Care Gap Outreach [[id number]] Prescriptions as of 10/02/2018 Sig: TRIAMTERENE 37.5 MG-HYDROCHLO* Take 1 capsule by mouth once * SIMVASTATIN 20 MG TABLET Take 1 tablet by mouth daily * METHOCARBAMOL 500 MG TABLET Take 1 tablet by mouth at bed* MELOXICAM 15 MG TABLET Take 1 tablet by mouth once d* Patient not taking: Reported on 04/05/2017 Problem List As Of Date 10/02/2018 Noted Resolved Mixed hyperlipidemia [E78.2] INVALID FOR* More... Hypokalemia [E87.6] INVALID FOR* More... Essential hypertension [I10] INVALID FOR* More... Letter Text Encounter Status:Closed by MONISHA TRIMBLE CMA on 10/08/18 [facility] PROGRESSon 10-02-2018 PROGRESS HNO ID: [id number] Author: Monisha Trimble Service: ? Author Type: Vacuum Tester Cans Type: Progress Notes Filed: 10/08/2018 8:57 AM Note Text: PHMA TEAMLET DOCUMENTATION Provider Action/FYI: PSR Action/FYI: - due for physical with labs prior (already ordered) - send certified letter if unable to contact patient - review HM Health Maintenance Due: BP CONTROLLED (<130/80) due on 1988 DTAP,TDAP,TD(2 - Tdap) due on 03/11/2012 MAMMOGRAM due on 09/06/2017 - ordered ANNUAL PCP TEAM CHRONIC DISEASE VISIT due on 04/05/2018 PAP TESTING due on 05/08/2018 HPV TESTING due on 05/08/2018 Teamlet has identified patient by name and date of . Team: Matt Page ? Last Office Visit:Visit date not found ? Next Office Visit: Visit date not found ? Last BP/Labs: Blood Pressure: Last 3 Encounter BP Readings: Date: BP: 04/05/2017 134/86 03/15/2017 110/80 08/28/2016 124/89 Lipids: Cholesterol, Total (mg/dL) Date Value 08/24/2016 232 11/21/2015 185 HDL Cholesterol (mg/dL) Date Value 08/24/2016 70 11/21/2015 67 LDL Cholesterol (mg/dL) Date Value 08/24/2016 139 11/21/2015 96 Triglyceride (mg/dL) Date Value 08/24/2016 113 11/21/2015 109 HGB A1C: No results found for: HBA1C TSH: No results found for: TSH) Care Gap: HTN Hyperlipidemia Plan: ? Confirm PCP / Status - unknown ? Type of appointment needed: Physical next available with pcp or reconciliation accountant ? Consultation Appointments: N/A Labs, HM and Immunization: Health Maintenance Due: BP CONTROLLED (<130/80) due on 1988 DTAP,TDAP,TD(2 - Tdap) due on 03/11/2012 MAMMOGRAM due on 09/06/2017 - ordered ANNUAL PCP TEAM CHRONIC DISEASE VISIT due on 04/05/2018 PAP TESTING due on 05/08/2018 HPV TESTING due on 05/08/2018 Monisha Trimble CMA Normal [facility] PROGRESSon 07-25-2018 PROGRESS HNO ID: [id number] Author: Monisha Trimble Service: ? Author Type: Vacuum Tester Cans Type: Progress Notes Filed: 07/25/2018 8:53 AM Note Text: [facility] ENVIRONMENTAL PROJECTS ADVISOR QUICKNOTE Provider Action/FYI: Letter mailed to patient. Patient identified by name and . 3rd attempt - Left message for patient to return call #[phone] Mailing letter to patient. Monisha Trimble CMA [facility] PROGRESSon 07-23-2018 PROGRESS HNO ID: [id number] Author: Monisha Trimble Service: ? Author Type: Vacuum Tester Cans Type: Progress Notes Filed: 07/25/2018 8:53 AM Note Text: [facility] ENVIRONMENTAL PROJECTS ADVISOR QUICKNOTE Provider Action/FYI: Patient identified by name and . 2nd attempt - Left message for patient to return call #[phone] Monisha Trimble CMA [facility] PROGRESSon 07-18-2018 PROGRESS HNO ID: [id number] Author: Monisha Trimble Service: ? Author Type: Vacuum Tester Cans Type: Progress Notes Filed: 07/25/2018 8:53 AM Note Text: [facility] ENVIRONMENTAL PROJECTS ADVISOR QUICKNOTE Provider Action/FYI: Patient identified by name and . 1st attempt - Left message for patient to return call #[phone] Monisha Trimble CMA [facility] CNPTOUTREACHon 07-17-2018 CNPTOUTREACH Patient Outreach (INT[facility]) ---- LEIA LEW ([id number]) 1970 F Date Time Provider Department 07/17/18 MONISHA TRIMBLE) INTMWS During your visit today, we recorded the following information about you: Monisha Trimble CMA 07/25/2018 8:53 AM Signed PHMA TEAMLET DOCUMENTATION Provider Action/FYI: PSR Action/FYI: Due for Physical labs already ordered (I spoke with patient 04/2018 and she states she was having insurance difficulties. I will call patient to see if she'd like to make an appointment now - if needed?) Due for INSTRUMENT PERSON exam Health Maintenance Due: BP CONTROLLED (<130/80) due on 1988 DTAP,TDAP,TD(2 - Tdap) due on 03/11/2012 MAMMOGRAM due on 09/06/2017 - ordered ANNUAL PCP TEAM CHRONIC DISEASE VISIT due on 04/05/2018 PAP TESTING due on 05/08/2018 HPV TESTING due on 05/08/2018 Teamlet has identified patient by name and date of . Team: Dr. Enio Bearden ? Last Office Visit:Visit date not found ? Next Office Visit: Visit date not found ? Last BP/Labs: Blood Pressure: Last 3 Encounter BP Readings: Date: BP: 04/05/2017 134/86 03/15/2017 110/80 08/28/2016 124/89 Lipids: Cholesterol, Total (mg/dL) Date Value 08/24/2016 232 11/21/2015 185 HDL Cholesterol (mg/dL) Date Value 08/24/2016 70 11/21/2015 67 LDL Cholesterol (mg/dL) Date Value 08/24/2016 139 11/21/2015 96 Triglyceride (mg/dL) Date Value 08/24/2016 113 11/21/2015 109 HGB A1C: No results found for: HBA1C TSH: No results found for: TSH) Care Gap: HTN Hyperlipidemia Plan: ? Confirm PCP / Status - active ? Type of appointment needed: Physical next available with pcp or reconciliation accountant ? Consultation Appointments: n/a Labs, HM and Immunization: Health Maintenance Due: BP CONTROLLED (<130/80) due on 1988 DTAP,TDAP,TD(2 - Tdap) due on 03/11/2012 MAMMOGRAM due on 09/06/2017 - ordered ANNUAL PCP TEAM CHRONIC DISEASE VISIT due on 04/05/2018 PAP TESTING due on 05/08/2018 HPV TESTING due on 05/08/2018 JANUARY Pace, [facility] 07/25/2018 8:53 AM Signed [facility] ENVIRONMENTAL PROJECTS ADVISOR COREYNOTE Provider Action/FYI: Patient identified by name and . 1st attempt - Left message for patient to return call #[phone] JANUARY Pace, [employer] 07/25/2018 8:53 AM Signed [facility] ENVIRONMENTAL PROJECTS ADVISOR COREYNOTE Provider Action/FYI: Patient identified by name and . 2nd attempt - Left message for patient to return call #[phone] JANUARY Pace CMA 07/25/2018 8:53 AM Signed [facility] ENVIRONMENTAL PROJECTS ADVISOR QUICKNOTE Provider Action/FYI: Letter mailed to patient. Patient identified by name and . 3rd attempt - Left message for patient to return call #[phone] Mailing letter to patient. Monisha Trimble CMA Allergies As of Date: 07/17/2018 Noted Allergy Reaction LISINOPRIL 08/28/2016 3 - Cough Date Reviewed: 04/05/2017 Reviewed by: Derrick Vasquez Ma - Fully Assessed Reason for Visit: PHMA/Care Gap Outreach [[id number]] Prescriptions as of 07/17/2018 Sig: TRIAMTERENE 37.5 MG-HYDROCHLO* Take 1 capsule by mouth once * SIMVASTATIN 20 MG TABLET Take 1 tablet by mouth daily * METHOCARBAMOL 500 MG TABLET Take 1 tablet by mouth at bed* MELOXICAM 15 MG TABLET Take 1 tablet by mouth once d* Patient not taking: Reported on 04/05/2017 Problem List As Of Date 07/17/2018 Noted Resolved Mixed hyperlipidemia [E78.2] INVALID FOR* More... Hypokalemia [E87.6] INVALID FOR* More... Essential hypertension [I10] INVALID FOR* More... Letter Text Encounter Status:Closed by MONISHA TRIMBLE CMA on 07/25/18 [facility] PROGRESSon 07-17-2018 PROGRESS HNO ID: [id number] Author: Monisha Trimble Service: ? Author Type: Vacuum Tester Cans Type: Progress Notes Filed: 07/25/2018 8:53 AM Note Text: PHMA TEAMLET DOCUMENTATION Provider Action/FYI: PSR Action/FYI: Due for Physical labs already ordered (I spoke with patient 04/2018 and she states she was having insurance difficulties. I will call patient to see if she'd like to make an appointment now - if needed?) Due for INSTRUMENT PERSON exam Health Maintenance Due: BP CONTROLLED (<130/80) due on 1988 DTAP,TDAP,TD(2 - Tdap) due on 03/11/2012 MAMMOGRAM due on 09/06/2017 - ordered ANNUAL PCP TEAM CHRONIC DISEASE VISIT due on 04/05/2018 PAP TESTING due on 05/08/2018 HPV TESTING due on 05/08/2018 Teamlet has identified patient by name and date of . Team: Dr. Enio Bearden ? Last Office Visit:Visit date not found ? Next Office Visit: Visit date not found ? Last BP/Labs: Blood Pressure: Last 3 Encounter BP Readings: Date: BP: 04/05/2017 134/86 03/15/2017 110/80 08/28/2016 124/89 Lipids: Cholesterol, Total (mg/dL) Date Value 08/24/2016 232 11/21/2015 185 HDL Cholesterol (mg/dL) Date Value 08/24/2016 70 11/21/2015 67 LDL Cholesterol (mg/dL) Date Value 08/24/2016 139 11/21/2015 96 Triglyceride (mg/dL) Date Value 08/24/2016 113 11/21/2015 109 HGB A1C: No results found for: HBA1C TSH: No results found for: TSH) Care Gap: HTN Hyperlipidemia Plan: ? Confirm PCP / Status - active ? Type of appointment needed: Physical next available with pcp or reconciliation accountant ? Consultation Appointments: n/a Labs, HM and Immunization: Health Maintenance Due: BP CONTROLLED (<130/80) due on 1988 DTAP,TDAP,TD(2 - Tdap) due on 03/11/2012 MAMMOGRAM due on 09/06/2017 - ordered ANNUAL PCP TEAM CHRONIC DISEASE VISIT due on 04/05/2018 PAP TESTING due on 05/08/2018 HPV TESTING due on 05/08/2018 Monisha rTimble CMA [facility] PROGRESSon 05-09-2018 PROGRESS HNO ID: [id number] Author: Monisha Trimble Service: (none) Author Type: Vacuum Tester Cans Type: Progress Notes Filed: 05/09/2018 8:15 AM Note Text: [facility] ENVIRONMENTAL PROJECTS ADVISOR QUICKNOTE Provider Action/FYI: I spoke with patient and she states she hasn't been in due to issues with insurance. She's getting it figured out and will call us back to make an appointment when able. Patient identified by name and . Monisha Trimble CMA [facility] PROGRESSon 05-07-2018 PROGRESS HNO ID: [id number] Author: Monisha Trimble Service: (none) Author Type: Vacuum Tester Cans Type: Progress Notes Filed: 05/09/2018 8:15 AM Note Text: [facility] ENVIRONMENTAL PROJECTS ADVISOR QUICKNOTE Provider Action/FYI: Patient identified by name and . 2nd attempt - Left message for patient to return call #[phone] Monisha Atilio JANUARY [facility] PROGRESSon 05-05-2018 PROGRESS HNO ID: [id number] Author: Monisha Trimble Service: (none) Author Type: Vacuum Tester Cans Type: Progress Notes Filed: 05/09/2018 8:15 AM Note Text: [facility] ENVIRONMENTAL PROJECTS ADVISOR QUICKNOTE Provider Action/FYI: Patient identified by name and . 1st attempt - Left message for patient to return call #[phone] Monisha Atilio JANUARY [facility] CNPTOUTREACHon 05-01-2018 CNPTOUTREACH Patient Outreach (INT[facility]) ---- LEIA LEW ([id number]) 1970 F Date Time Provider Department [facility]/01[facility] During your visit today, we recorded the following information about you: Monisha Trimble CMA 05/09/2018 8:15 AM Signed PHMA TEAMLET DOCUMENTATION Provider Action/FYI: PSR Action/FYI: Due for Physical with pcp or reconciliation accountant next available Teamlet has identified patient by name and date of . Team: Dr. Enio Bearden ? Last Office Visit:Visit date not found ? Next Office Visit: Visit date not found ? Last BP/Labs: Blood Pressure: Last 3 Encounter BP Readings: Date: BP: 04/05/2017 134/86 03/15/2017 110/80 08/28/2016 124/89 Lipids: Cholesterol, Total (mg/dL) Date Value 08/24/2016 232 11/21/2015 185 HDL Cholesterol (mg/dL) Date Value 08/24/2016 70 11/21/2015 67 LDL Cholesterol (mg/dL) Date Value 08/24/2016 139 11/21/2015 96 Triglyceride (mg/dL) Date Value 08/24/2016 113 11/21/2015 109 HGB A1C: No results found for: HBA1C TSH: No results found for: TSH) Care Gap: HTN Hyperlipidemia Plan: ? Confirm PCP / Status - unknown ? Type of appointment needed: Physical next available with pcp or reconciliation accountant ? Consultation Appointments: n/a Labs, HM and Immunization: Health Maintenance Due: ANNUAL PCP TEAM CHRONIC DISEASE VISIT due on 1988 BP CONTROLLED (<130/80) due on 1988 DTAP,TDAP,TD(2 - Tdap) due on 03/11/2012 MAMMOGRAM due on 09/06/2017 - order pending INFLUENZA(1) due on 11/09/2017 PAP TESTING due on 05/08/2018 HPV TESTING due on 05/08/2018 JANUARY Pace APRN.BELTRAN 05/09/2018 8:15 AM Signed Orders filed. Matt Ku APRN.BELTRAN Trimble CMA 05/09/2018 8:15 AM Signed [facility] HEBERE Provider Action/FYI: Patient identified by name and . 1st attempt - Left message for patient to return call #[phone] JANUARY Pace CMA 05/09/2018 8:15 AM Signed [facility] LIONEL Provider Action/FYI: Patient identified by name and . 2nd attempt - Left message for patient to return call #[phone] JANUARY Pace CMA 05/09/2018 8:15 AM Signed [facility] LIONEL Provider Action/FYI: I spoke with patient and she states she hasn't been in due to issues with insurance. She's getting it figured out and will call us back to make an appointment when able. Patient identified by name and . Monisha Trimble CMA Allergies As of Date: 05/01/2018 Noted Allergy Reaction LISINOPRIL 08/28/2016 3 - Cough Date Reviewed: 04/05/2017 Reviewed by: Derrick Vasquez Ma - Fully Assessed Reason for Visit: PHMA/Care Gap Outreach [[id number]] Primary Visit Diagnosis:Mixed hyperlipidemia [E78.2] Other Visit Diagnoses:Essential hypertension [I10] Screening mammogram, encounter for [Z12.31] Order(s):LIPID PANEL BASIC [SQLIPB] Order #: [id number] FUTURE BASIC METABOLIC PNL [SQBMP] Order #: [id number] FUTURE RENALDO SCREENING W SHANTAL [1104953] Order #: [id number] FUTURE Prescriptions as of 05/01/2018 Sig: TRIAMTERENE 37.5 MG-HYDROCHLO* Take 1 capsule by mouth once * SIMVASTATIN 20 MG TABLET Take 1 tablet by mouth daily * METHOCARBAMOL 500 MG TABLET Take 1 tablet by mouth at bed* MELOXICAM 15 MG TABLET Take 1 tablet by mouth once d* Patient not taking: Reported on 04/05/2017 Problem List As Of Date 05/01/2018 Noted Resolved Mixed hyperlipidemia [E78.2] INVALID FOR* More... Hypokalemia [E87.6] INVALID FOR* More... Essential hypertension [I10] INVALID FOR* More... Encounter Status:Closed by MONISHA TRIMBLE CMA on 05/09/18 [facility] PROGRESSon 05-01-2018 PROGRESS HNO ID: [id number] Author: Matt Ku Service: (none) Author Type: Nurse Practitioner Type: Progress Notes Filed: 05/09/2018 8:15 AM Note Text: Orders filed. Matt Ku APRN.CNP [facility] PROGRESS HNO ID: [id number] Author: Monisha Trimble Service: (none) Author Type: Vacuum Tester Cans Type: Progress Notes Filed: 05/09/2018 8:15 AM Note Text: PHMA TEAMLET DOCUMENTATION Provider Action/FYI: PSR Action/FYI: Due for Physical with pcp or reconciliation accountant next available Teamlet has identified patient by name and date of . Team: Dr. Enio Bearden ? Last Office Visit:Visit date not found ? Next Office Visit: Visit date not found ? Last BP/Labs: Blood Pressure: Last 3 Encounter BP Readings: Date: BP: 04/05/2017 134/86 03/15/2017 110/80 08/28/2016 124/89 Lipids: Cholesterol, Total (mg/dL) Date Value 08/24/2016 232 11/21/2015 185 HDL Cholesterol (mg/dL) Date Value 08/24/2016 70 11/21/2015 67 LDL Cholesterol (mg/dL) Date Value 08/24/2016 139 11/21/2015 96 Triglyceride (mg/dL) Date Value 08/24/2016 113 11/21/2015 109 HGB A1C: No results found for: HBA1C TSH: No results found for: TSH) Care Gap: HTN Hyperlipidemia Plan: ? Confirm PCP / Status - unknown ? Type of appointment needed: Physical next available with pcp or reconciliation accountant ? Consultation Appointments: n/a Labs, HM and Immunization: Health Maintenance Due: ANNUAL PCP TEAM CHRONIC DISEASE VISIT due on 1988 BP CONTROLLED (<130/80) due on 1988 DTAP,TDAP,TD(2 - Tdap) due on 03/11/2012 MAMMOGRAM due on 09/06/2017 - order pending INFLUENZA(1) due on 11/09/2017 PAP TESTING due on 05/08/2018 HPV TESTING due on 05/08/2018 Monisha Trimble CMA Normal [facility] Encounters Encounter Date Encounter Type Care Provider Facility Start: 10-21-2024 End: 10-21-[address] Caridad Haas MD Work Phone: -[facility] Start: 10-21-2024 End: 10-21-[address] Caridad Haas MD -[facility] Work Phone: Start: 10-21-2024 End: 10-21-2024 ambulatory Caridad Haas Facility:[facility] Start: 07-16-2024 Encounter for genera l adult medical examination without abnormal findings Caridad Haas [facility] Start: 07-11-2024 End: 07-11-[address] Caridad Haas MD Work Phone: [facility] Work Phone: Start: 07-11-2024 End: 07-11-[address] Caridad Haas MD -Laboratory Work Phone: Start: 07-11-2024 End: 07-11-2024 ambulatory Caridad Haas Facility:[facility] Start: 11-17-2022 End: 11-17-2022 ambulatory [facility] Work Phone: Start: 11-17-2022 End: 11-17-2022 Patient encounter procedure [facility]-Laboratory Work Phone: Start: 08-16-2021 End: 08-16-2021 Patient encounter procedure [facility] Start: 08-08-2021 End: 08-08-2021 Patient encounter procedure [facility] Start: 07-15-2021 End: 07-15-2021 Patient encounter procedure [facility]Laboratory Procedures Date Procedure Procedure Detail Performing Clinician Start: 10-21-2024 Screening mammography Dionna Haas MD Work Phone: Start: 08-16-2021 Mammography Start: 08-16-2021 Ultrasonography of breast Start: 08-08-2021 Screening mammography Payers Date Payer Category Payer Self-pay [id number] 2024 Unknown [id number] Unknown [id number] Unknown [id number] Unknown [id number] Social History Date Type Detail Facility [facility]: [facility] Start: 1970 Sex Assigned At Female [facility] Start: 03-08-2017 [facility]finding[facility] Evaluation note Note Date & Type Note Facility Evaluation note No assessment information availa ble [facility] Work Phone: Reason for referral (narrative) Note Date & Type Note Facility Reason for referral (narrative) No reason for referral information available [facility] Work Phone: Summary Purpose Family History No Family History Records Found Relationship Condition Age at Onset Recorded Date/T tavon father Alcoholism Unknown Hypertension Unknown High blood cholesterol Unknown Sarcoma Unknown mother Malignant neoplasm of breast Unknown Cerebrovascular accident (CVA) Unknown Duct carcinoma Unknown sister Asthma Unknown Autoimmune disease Unknown Disorder of thyroid Unknown Malignant neoplasm of uterus Unknown Patricia's thyroiditis Unknown Advance Directives No Advanced Directives Records FoundNo Advanced Directives Records Found Chief Complaint and Reason for Visit Chief Complaint SCREENING Chief Complaint SCREENING ABNORMAL MAMMOGRAM Chief Complaint Admit Date SCREENING October 21, 2024 3: 14pm Additional Source Comments INFORMATION SOURCE (unrecogn ized section and content) DATE CREATED AUTHOR 03/30/2019 [facility] DATE CREATED AUTHOR AUTHOR'S ORGANIZ ATION 10/31/2024 [facility] Goals (unrecognized section and content) Goals may be documented in a n alternate sectionGoals may be documented in an alternate sectionGoals may be documented in an alternate sectionGoals may be documented in an alternate sectionGoals may be documented in an alternate sectionGoals may be documented in an alternate section Care Teams (unrecognized sec tion and content) Team Status: Active Member Role Status Dates Dr. Caridad Haas MD Family Provider Active Dr. Caridad Haas MD Primary Care Provider Active Team Status: Inactive Member Role Status Dates Dr. Caridad Haas MD Primary Care Prov ider, Attending Provider, Referring Provider Active Team Status: Active Member Role Status Dates Dr. Caridad Haas MD Primary Care Provider Active Team Status: Inactive Member Role Status Dates Dr. Caridad Haas MD Primary Care Provider Active Start: July 11, 2024 End: July 11, 2024 Dr. Caridad Haas MD Attending Provider Active Start: July 11, 2024 End: July 11, 2024 Dr. Cariadd Haas MD Referring Provider Active Start: July 11, 2024 End: July 11, 2024 Team Status: Active Member Role/Relationship Status Dates Dr. Caridad Haas MD Primary Care Provider Active Team Status: Inactive Member Role/Relationship Status Dates Dr. Caridad Haas MD Primary Care Provider Active Start: July 11, 2024 End: July 11, 2024 Dr. Caridad Haas MD Attending Provider Active Start: July 11, 2024 End: July 11, 2024 Dr. Caridad Haas MD Referring Provider Active Start: July 11, 2024 End: July 11, 2024 Team Status: Inactive Member Role/Relationship Status Dates Dr. Caridad Haas MD Primary Care Provider Active Start: October 21, 2024 End: October 21, 2024 Dr. Caridad Haas MD Attending Provider Active Start: October 21, 2024 End: October 21, 2024 Dr. Caridad Haas MD Referring Provider Active Start: October 21, 2024 End: October 21, 2024 FOR RECORDS PERTAINING TO PATIENTS WHO ARE OR HAVE BEEN ENROLLED IN A CHEMICAL DEPENDENCY/SUBSTANCEABUSE PROGRAM, SOME INFORMATION MAY BE OMITTED. This clinical summary was aggregated from multiple sources. Caution should be exercised in using it in the provision of clinical care. This summary normalizes information from multiple sources, and as a consequence, information in this document may materially change the coding, format and clinical context of patient data. In addition, data may be omitted in some cases. CLINICAL DECISIONS SHOULD BE BASED ON THE PRIMARY CLINICAL RECORDS. [employer] provides no warranty or guarantee of the accuracy or completeness of information in this document.
[2025-01-01 14:10] LABS: HPV APTIMA, High Risk Negative (Negative)
== END | disposition home or self-care (01) ==
PROVIDERS: PCP Family Medicine; Referring Provider Obstetrics & Gynecology; Visit Provider Obstetrics & Gynecology
DX: Z12.4 Encounter for screening for malignant neoplasm of cervix (principal)
CPT/HCPCS: 87624; 88175; G0145

== ENCOUNTER → 2025-01-12 | Outpatient (CLI) | payer OTHER, SELFPAY | END | disposition home or self-care (01) | LOC: LABSPEC 15:54 | PROVIDERS: PCP Family Medicine; Visit Provider Nurse Practitioner Family | DX: N89.8 Other specified noninflammatory disorders of vagina (principal) | CPT/HCPCS: 87070; 87205 ==